=== PATIENT | female | born 1960 ===

== ENCOUNTER 2018-09-25 19:45 | Inpatient (IN) | payer MEDICAID ==
[2018-09-25 20:19] LABS: BASO # 0.1 K/uL (0.0-0.2); BASO % 0.8 % (0.0-2.0); EOS # 0.3 K/uL (0.0-0.7); EOS % 3.7 % (0.0-4.0); HEMOGLOBIN 11.4 g/dL (11.0-16.0); LYMPH # 1.6 K/uL (1.0-4.3); LYMPH % 23.3 % (20.0-40.0); MEAN CELL VOLUME 90.1 fL (81.0-99.0); MEAN CORPUSCULAR HEMOGLOBIN 30.4 pg (27.0-31.0); MEAN CORPUSCULAR HGB CONC 33.8 g/dL (33.0-37.0); MEAN PLATELET VOLUME 8.3 fL (7.2-11.7); MONO # 0.7 K/uL (0.0-0.8); NEUT # 4.3 K/uL (1.8-7.0); NEUT % 62.2 % (50.0-75.0); RBC 3.76 Mil/uL (3.80-5.20); RED CELL DISTRIBUTION WIDTH 13.2 % (11.5-14.5); WHITE BLOOD COUNT 6.8 K/uL (4.8-10.8)
[2018-09-25 20:27] LABS: PROTHROMBIN TIME 10.7 SECONDS (9.7-12.2)
[2018-09-25 20:33] LABS: ALB/GLOB RATIO 1.3 (1.0-2.1)
--- NOTE | 2018-09-25 20:34 | C.PDOC ---
History Of Present Illness 58 year old female with a PMHx of HTN and diabetes presents to the ER with a complaint of vomiting since yesterday associated with a burning sensation in her stomach and three episodes of diarrhea today. Denies bloody stools or bloody vomit. Patient also complains of right ankle pain. Denies recent injury/trauma, weakness, or numbness. Time Seen by Provider: 09/25/18 20:33 Chief Complaint (Nursing): GI Problem History Per: Patient History/Exam Limitations: no limitations Onset/Duration Of Symptoms: Days Current Symptoms Are (Timing): Still Present Quality Of Discomfort: Burning Associated Symptoms: Vomiting, Diarrhea. denies: Fever, Chills Exacerbating Factors: None Alleviating Factors: None Recent travel outside of the [place]: No Abnormal Vaginal Bleeding: No Past Medical History Reviewed: Historical Data, Nursing Documentation, Vital Signs Vital Signs: Last Vital Signs Temp 99.2 F 09/25/18 19:48 Pulse 99 H 09/25/18 19:48 Resp 16 09/25/18 19:48 BP 142/82 09/25/18 19:48 Pulse Ox 100 09/25/18 19:48 - Medical History PMH: HTN, Hyperlipidemia Family History: States: Unknown Family Hx - Social History Hx Alcohol Use: No Hx Substance Use: No Review Of Systems Except As Marked, All Systems Reviewed And Found Negative. Constitutional: Negative for: Fever, Chills, Weakness, Malaise Eyes: Negative for: Pain, Vision Change, Eyelid Inflammation ENT: Negative for: Ear Pain, Ear Discharge, Nose Congestion Cardiovascular: Negative for: Chest Pain, Palpitations, Orthopnea, Edema Respiratory: Negative for: Cough, Shortness of Breath, Hemoptysis, SOB with Excertion, Sputum Gastrointestinal: Positive for: Vomiting, Abdominal Pain (Burning sensation), Diarrhea. Negative for: Constipation, Melena Genitourinary: Negative for: Dysuria, Frequency, Hematuria Musculoskeletal: Positive for: Other (Right ankle pain). Negative for: Neck Pain, Shoulder Pain, Back Pain, Hand Pain Skin: Negative for: Rash, Lesions, Jaundice, Bruising Neurological: Negative for: Weakness, Numbness, Altered Mental Status, Headache Psych: Negative for: Anxiety, Depression Physical Exam - Physical Exam Appears: Well, Non-toxic, No Acute Distress Skin: Normal Color, Warm, Dry Head: Atraumatic, Normacephalic Eye(s): bilateral: Normal Inspection, PERRL, EOMI Ear(s): Bilateral: Normal Nose: Normal Oral Mucosa: Moist Tongue: Normal Appearing Lips: Normal Appearing Throat: Normal, No Erythema, No Exudate, No Drooling Neck: Normal, Normal ROM, Supple, Other (no meningeal signs) Chest: Symmetrical, No Tenderness Cardiovascular: Rhythm Regular Respiratory: Normal Breath Sounds, No Rales, No Rhonchi, No Wheezing Gastrointestinal/Abdominal: Normal Exam, Soft, No Tenderness Back: Normal Inspection, No CVA Tenderness, No Vertebral Tenderness Extremity: Normal ROM, No Tenderness, No Pedal Edema, No Calf Tenderness, Other (negative thompsons test) Extremity: Bilateral: Atraumatic, Hips Non-Tender, No Pedal Edema, Other (R mallelor tenderness, non erythematous, No crepitus. Walking well. No forefoot or plantar pain. n/v intact. ) Pulses: Left Dorsalis Pedis: Normal, Right Dorsalis Pedis: Normal Neurological/Psych: Oriented x3, Normal Speech, Normal Cognition ED Course And Treatment - Laboratory Results Result Diagrams: 09/25/18 12:31 09/25/18 23:12 O2 Sat by Pulse Oximetry: 100 (Room air) Pulse Ox Interpretation: Normal Medical Decision Making Medical Decision Makin yr old F w/ hx dm2 p/w nausea, vomiting, burning epigastric pain. No dysuria, urgency or frequency. No chest pain or sob. R malleloar tenderness. No recent trauma. No edema. No erythematous or warm joint. No overlying skin abnl. Negative mcgrath foot. Ambulating w/ out issue or pain. No fever, chills or night sweats. CT abd/pel, blood work, urinalysis, CXR, and EKG ordered. EK, NSR, No stemi 1047 Cr elevated. No previous hx per pt of kidney issues: no previous abnl labs per pt. Likely CINTHIA. no signs of overload on exam bnp unremarkable lipase mildly elevated UA w/ out uti will seek gentle hydration appeciate consult w/ Hospitalist: Repeat CMP. Enteritis on ct: will rx. No recent abx. XR unremarkable 1137 CMP: Cr 6.8 appreciate consult w/ Dr. Davis to be admitted to Dr. Davis service pt agreeable Disposition - Disposition Disposition Time: 23:39 Condition: GOOD Forms: [facility] (Armenian) - Clinical Impression Clinical Impression: CINTHIA (acute kidney injury), Enteritis - Scribe Statement The provider has reviewed the documentation as recorded by the Scribe Weston Faulkner All medical record entries made by the Scribe were at my direction and personally dictated by me. I have reviewed the chart and agree that the record accurately reflects my personal performance of the history, physical exam, medical decision making, and the department course for this patient. I have also personally directed, reviewed, and agree with the discharge instructions and disposition.
[2018-09-25 20:47] LABS: SQUAMOUS EPITHIAL 1 /hpf (0-5); URINE AMORPHOUS SEDIMENT RARE /ul (<OCC); URINE BACTERIA OCC (<OCC); URINE BILIRUBIN NEGATIVE (NEGATIVE); URINE BLOOD 1+ (NEGATIVE); URINE CLARITY Hazy (Clear); URINE COLOR Yellow (YELLOW); URINE GLUCOSE (UA) NORMAL (Normal); URINE LEUKOCYTE ESTERASE NEG Leu/uL (Negative); URINE PROTEIN 1+ mg/dL (NEGATIVE); URINE UROBILINOGEN NORMAL mg/dL (0.2-1.0)
[2018-09-25] MEDS ORDERED: Ciprofloxacin 400mg/200ml D5W 400 MG/200 ML BAG IVPB STA (22:42)
[2018-09-25] MEDS ORDERED: metroNIDAZOLE IV 500 mg/100 ml 500 MG/100 ML BAG IVPB STA (22:42)
[2018-09-25] MEDS ORDERED: Sodium Chloride 0.9% 1,000 ML IV SCH (22:45)
[2018-09-25] MEDS ORDERED: Ciprofloxacin 400mg/200ml D5W 400 MG/200 ML BAG IVPB ONE (22:53)
[2018-09-25] MEDS ORDERED: metroNIDAZOLE IV 500 mg/100 ml 500 MG/100 ML BAG ONE (22:54)
[2018-09-25] MEDS ORDERED: Sodium Chloride 0.9% 1,000 ML ONE (22:54)
[2018-09-25 23:28] LABS: ALB/GLOB RATIO 1.2 (1.0-2.1); ALBUMIN 3.6 g/dL (3.5-5.0); CALCIUM 8.7 mg/dl (8.6-10.4)
[2018-09-25 23:59] VITALS: RESP 20
[2018-09-26] MEDS ORDERED: Sodium Chloride 0.9% 1,000 ML IV SCH ×2 (01:45→10:00)
--- NOTE | 2018-09-26 01:45 | CP.PCM.HP ---
<Zulma Severino P - Last Filed: 09/26/18 10:16> History of Present Illness - History of Present Illness History of Present Illness: H&P for Hospitalist service HPI: 58 year old female with PMHx of DM2, HLD, and HTN presents to ED complaining of nausea, vomiting, and diarrhea that began one day prior to arrival. There have been 2 episodes of vomiting (non-bloody) each day and there has been 3 episodes of non-bloody diarrhea since yesterday. Patient also reports left sided abdominal burning. Patient also complains of R foot pain that that began one day ago and worsens with weight bearing. Treatment with ibuprofen provided no improvement. Patient noted to have BUN/Cr of 50/6.8 in ED. Patient has no previous history. States she just got blood work done at her PMD's office 4 days ago, has not received results yet. Notes decreased urination in the past few months. Denies dysuria, hematuria, swelling, chest pain, shortness of breath. PMHx: DM, HLD, HTN PSHx: colonoscopy 2014- findings of non-specific colitis Meds: Glimiperide 2mg daily, simvastatin 20mg daily, metformin 1000mg BID, enalapril 5mg daily. Alogliptin/Metformin 12.5/1000mg (patient was prescribed this 4 days ago, she took it for 2 days and discontinued it due to side effects) Allergies: NKDA FamHx: mother- stomach cancer, brother-DM SocHx: Denies tobacco, alcohol and drugs. lives with family. Works in a school. Proxy: Sarah Paty [phone] PMD: Cristian Review of Systems: -Gen: No fever, No chills, No headache, No lethargy, No weakness. -HEENT: No dizziness, No change in vision, No change in hearing, No sore throat, No dysphagia, No nasal congestion, No mucous. -Cardio: No chest pain, No palpitations, No lower extremity edema, No orthopnea. -Resp: No cough, No dyspnea, No hemoptysis, No wheezing, No pain on inspiration. -GI: + abdominal pain, + nausea/vomiting, No diarrhea/constipation, No hematochezia, No hematemesis. -: No dysuria, No urinary freq, No incontinence, No hematuria, No change in urinary stream. +decreased urination -MSK: No back pain, No muscle weakness, No radiating pain. + R foot pain -Skin: No itching, No rash, No lesions. -Neuro: No confusion, No numbness, No tingling, No focal weakness, No radicular pain, No syncope. -Psych: No anxiety, No depression, No H/I, No S/I, No hallucinations. Present on Admission - Present on Admission Any Indicators Present on Admission: No Past Patient History - Past Social History Smoking Status: Never Smoked - CARDIAC Hx Hypertension: Yes - ENDOCRINE/METABOLIC Hx Endocrine Disorders: Yes Hx Diabetes Mellitus Type 2: Yes - PSYCHIATRIC Hx Substance Use: No - SURGICAL HISTORY Hx Surgeries: Yes Hx Section: Yes (x3) Meds Allergies/Adverse Reactions: Allergies Allergy/AdvReac Type Severity Reaction Status Date / Time No Known Allergies Allergy Verified 08/12/14 15:18 Physical Exam - Constitutional Appears: Other (in distress with nausea and wrenching) - Head Exam Head Exam: ATRAUMATIC, NORMOCEPHALIC - Eye Exam Eye Exam: EOMI, Normal appearance, PERRL - ENT Exam ENT Exam: Mucous Membranes Dry - Neck Exam Neck exam: Positive for: Full Rom, Normal Inspection - Respiratory Exam Respiratory Exam: Clear to Auscultation Bilateral. absent: Decreased Breath Sounds, Rales, Rhonchi, Wheezes - Cardiovascular Exam Cardiovascular Exam: RRR, +S1, +S2 - GI/Abdominal Exam GI & Abdominal Exam: Normal Bowel Sounds, Soft. absent: Guarding, Rebound, Tenderness - Extremities Exam Extremities exam: Positive for: full ROM, normal capillary refill, normal inspection, pedal pulses present. Negative for: calf tenderness, pedal edema, tenderness - Back Exam Back exam: absent: CVA tenderness (L), CVA tenderness (R) - Neurological Exam Neurological exam: Alert, CN II-XII Intact, Oriented x3 - Psychiatric Exam Psychiatric exam: Normal Affect, Normal Mood - Skin Skin Exam: Dry, Intact, Normal Color, Warm Results - Vital Signs Recent Vital Signs: Last Vital Signs Temp 99.3 F 09/25/18 23:49 Pulse 80 09/25/18 23:49 Resp 20 09/25/18 23:49 BP 143/81 09/25/18 23:49 Pulse Ox 97 09/25/18 23:49 - Labs Result Diagrams: 09/25/18 12:31 09/25/18 23:12 Labs: Laboratory Results - last 24 hr 09/25/18 09/25/18 09/25/18 12:31 12:31 12:31 WBC 6.8 RBC 3.76 L Hgb 11.4 Hct 33.9 L MCV 90.1 MCH 30.4 MCHC 33.8 RDW 13.2 Plt Count 222 MPV 8.3 Neut % (Auto) 62.2 Lymph % (Auto) 23.3 [place] % (Auto) 10.0 Eos % (Auto) 3.7 Baso % (Auto) 0.8 Neut # (Auto) 4.3 Lymph # (Auto) 1.6 [place] # (Auto) 0.7 Eos # (Auto) 0.3 Baso # (Auto) 0.1 PT 10.7 INR 1.0 APTT 32 Sodium 138 Potassium 5.2 Chloride 101 Carbon Dioxide 21 L Anion Gap 21 H BUN 49 H Creatinine 7.1 H Est GFR ( Amer) 7 Est GFR (Non-Af Amer) 6 Random Glucose 95 Calcium 9.0 Phosphorus 4.8 H Magnesium 1.7 Total Bilirubin 0.5 AST 23 ALT 22 Alkaline Phosphatase 54 NT-Pro-B Natriuret Pep Total Protein 7.2 Albumin 4.0 Globulin 3.2 Albumin/Globulin Ratio 1.3 Lipase Urine Color Urine Clarity Urine pH Ur Specific [place] Urine Protein Urine Glucose (UA) Urine Ketones Urine Blood Urine Nitrate Urine Bilirubin Urine Urobilinogen Ur Leukocyte Esterase Urine WBC (Auto) Urine RBC (Auto) Ur Squamous Epith Cells Amorphous Sediment Urine Bacteria 09/25/18 09/25/18 09/25/18 20:23 20:57 21:16 WBC RBC Hgb Hct MCV MCH MCHC RDW Plt Count MPV Neut % (Auto) Lymph % (Auto) [place] % (Auto) Eos % (Auto) Baso % (Auto) Neut # (Auto) Lymph # (Auto) [place] # (Auto) Eos # (Auto) Baso # (Auto) PT INR APTT Sodium Potassium Chloride Carbon Dioxide Anion Gap BUN Creatinine Est GFR ( Amer) Est GFR (Non-Af Amer) Random Glucose Calcium Phosphorus Magnesium Total Bilirubin AST ALT Alkaline Phosphatase NT-Pro-B Natriuret Pep 612 Total Protein Albumin Globulin Albumin/Globulin Ratio Lipase 517 H Urine Color Yellow Urine Clarity Hazy Urine pH 5.0 Ur Specific [place] 1.011 Urine Protein 1+ H Urine Glucose (UA) Normal Urine Ketones Negative Urine Blood 1+ H Urine Nitrate Negative Urine Bilirubin Negative Urine Urobilinogen Normal Ur Leukocyte Esterase Neg Urine WBC (Auto) 2 Urine RBC (Auto) 1 Ur Squamous Epith Cells 1 Amorphous Sediment Rare H Urine Bacteria Occ H 09/25/18 23:12 WBC RBC Hgb Hct MCV MCH MCHC RDW Plt Count MPV Neut % (Auto) Lymph % (Auto) [place] % (Auto) Eos % (Auto) Baso % (Auto) Neut # (Auto) Lymph # (Auto) [place] # (Auto) Eos # (Auto) Baso # (Auto) PT INR APTT Sodium 137 Potassium 5.3 H Chloride 104 Carbon Dioxide 19 L Anion Gap 20 BUN 50 H Creatinine 6.8 H Est GFR ( Amer) 7 Est GFR (Non-Af Amer) 6 Random Glucose 80 Calcium 8.7 Phosphorus Magnesium Total Bilirubin 0.5 AST 26 ALT 26 Alkaline Phosphatase 46 NT-Pro-B Natriuret Pep Total Protein 6.7 Albumin 3.6 Globulin 3.0 Albumin/Globulin Ratio 1.2 Lipase Urine Color Urine Clarity Urine pH Ur Specific [place] Urine Protein Urine Glucose (UA) Urine Ketones Urine Blood Urine Nitrate Urine Bilirubin Urine Urobilinogen Ur Leukocyte Esterase Urine WBC (Auto) Urine RBC (Auto) Ur Squamous Epith Cells Amorphous Sediment Urine Bacteria Assessment & Plan - Assessment and Plan (Free Text) Plan: 58 year old female with PMHx of DM2, HLD and HTN admitted for CINTHIA. Acute kidney injury -BUN/Cr: 50/6.8 - NS at 100mls/hr - Nephrology consulted, help appreciated f/u urine studies, CPK, intact PTH -Reportedly patient had blood work done 4 days ago with PMD, follow up results Diabetes Mellitus 2 - home meds Hold metformin and glimerpide 2mg PO due to CINTHIA Hyperlipidemia -Crestor 5mg PO HS Prophylaxis -CLD -Heparin 5000 u SC Q12 -SCDs -GI ppx not indicated Case discussed with Dr. Davis. <Rudi Davis - Last Filed: 09/26/18 18:50> Results - Vital Signs Recent Vital Signs: Last Vital Signs Temp 99.5 F 09/26/18 16:07 Pulse 85 11/14/18 16:07 Resp 20 09/26/18 16:07 BP 146/82 09/26/18 16:07 Pulse Ox 99 09/26/18 16:07 - Labs Result Diagrams: 09/26/18 11:40 09/26/18 15:18 Labs: Laboratory Results - last 24 hr 09/25/18 09/25/18 09/25/18 12:31 12:31 12:31 WBC 6.8 RBC 3.76 L Hgb 11.4 Hct 33.9 L MCV 90.1 MCH 30.4 MCHC 33.8 RDW 13.2 Plt Count 222 MPV 8.3 Neut % (Auto) 62.2 Lymph % (Auto) 23.3 [place] % (Auto) 10.0 Eos % (Auto) 3.7 Baso % (Auto) 0.8 Neut # (Auto) 4.3 Lymph # (Auto) 1.6 [place] # (Auto) 0.7 Eos # (Auto) 0.3 Baso # (Auto) 0.1 PT 10.7 INR 1.0 APTT 32 Sodium 138 Potassium 5.2 Chloride 101 Carbon Dioxide 21 L Anion Gap 21 H BUN 49 H Creatinine 7.1 H Est GFR ( Amer) 7 Est GFR (Non-Af Amer) 6 POC Glucose (mg/dL) Random Glucose 95 Calcium 9.0 Phosphorus 4.8 H Magnesium 1.7 Iron TIBC % Saturation Ferritin Total Bilirubin 0.5 AST 23 ALT 22 Alkaline Phosphatase 54 NT-Pro-B Natriuret Pep Total Protein 7.2 Albumin 4.0 Globulin 3.2 Albumin/Globulin Ratio 1.3 Lipase Vitamin B12 Folate Urine Color Urine Clarity Urine pH Ur Specific [place] Urine Protein Urine Glucose (UA) Urine Ketones Urine Blood Urine Nitrate Urine Bilirubin Urine Urobilinogen Ur Leukocyte Esterase Urine WBC (Auto) Urine RBC (Auto) Ur Squamous Epith Cells Amorphous Sediment Urine Bacteria Ur Random Creatinine U Random Total Protein Ur Random Sodium Ur Random Potassium Complement C3 Complement C4 Hep Bs Antigen Hep Bs Antibody Hep B Core IgM Ab Hepatitis C Antibody HIV 1&2 Antibody Screen 09/25/18 09/25/18 09/25/18 20:23 20:57 21:16 WBC RBC Hgb Hct MCV MCH MCHC RDW Plt Count MPV Neut % (Auto) Lymph % (Auto) [place] % (Auto) Eos % (Auto) Baso % (Auto) Neut # (Auto) Lymph # (Auto) [place] # (Auto) Eos # (Auto) Baso # (Auto) PT INR APTT Sodium Potassium Chloride Carbon Dioxide Anion Gap BUN Creatinine Est GFR ( Amer) Est GFR (Non-Af Amer) POC Glucose (mg/dL) Random Glucose Calcium Phosphorus Magnesium Iron TIBC % Saturation Ferritin Total Bilirubin AST ALT Alkaline Phosphatase NT-Pro-B Natriuret Pep 612 Total Protein Albumin Globulin Albumin/Globulin Ratio Lipase 517 H Vitamin B12 Folate Urine Color Yellow Urine Clarity Hazy Urine pH 5.0 Ur Specific [place] 1.011 Urine Protein 1+ H Urine Glucose (UA) Normal Urine Ketones Negative Urine Blood 1+ H Urine Nitrate Negative Urine Bilirubin Negative Urine Urobilinogen Normal Ur Leukocyte Esterase Neg Urine WBC (Auto) 2 Urine RBC (Auto) 1 Ur Squamous Epith Cells 1 Amorphous Sediment Rare H Urine Bacteria Occ H Ur Random Creatinine U Random Total Protein Ur Random Sodium Ur Random Potassium Complement C3 Complement C4 Hep Bs Antigen Hep Bs Antibody Hep B Core IgM Ab Hepatitis C Antibody HIV 1&2 Antibody Screen 09/25/18 09/26/18 09/26/18 23:12 07:49 07:49 WBC RBC Hgb Hct MCV MCH MCHC RDW Plt Count MPV Neut % (Auto) Lymph % (Auto) [place] % (Auto) Eos % (Auto) Baso % (Auto) Neut # (Auto) Lymph # (Auto) [place] # (Auto) Eos # (Auto) Baso # (Auto) PT INR APTT Sodium 137 Potassium 5.3 H Chloride 104 Carbon Dioxide 19 L Anion Gap 20 BUN 50 H Creatinine 6.8 H Est GFR ( Amer) 7 Est GFR (Non-Af Amer) 6 POC Glucose (mg/dL) Random Glucose 80 Calcium 8.7 Phosphorus Magnesium Iron TIBC % Saturation Ferritin Total Bilirubin 0.5 AST 26 ALT 26 Alkaline Phosphatase 46 NT-Pro-B Natriuret Pep Total Protein 6.7 Albumin 3.6 Globulin 3.0 Albumin/Globulin Ratio 1.2 Lipase Vitamin B12 Folate Urine Color Urine Clarity Urine pH Ur Specific [place] Urine Protein Urine Glucose (UA) Urine Ketones Urine Blood Urine Nitrate Urine Bilirubin Urine Urobilinogen Ur Leukocyte Esterase Urine WBC (Auto) Urine RBC (Auto) Ur Squamous Epith Cells Amorphous Sediment Urine Bacteria Ur Random Creatinine 40.8 U Random Total Protein Ur Random Sodium 117 Ur Random Potassium 19.0 Complement C3 Complement C4 Hep Bs Antigen Hep Bs Antibody Hep B Core IgM Ab Hepatitis C Antibody HIV 1&2 Antibody Screen 09/26/18 09/26/18 09/26/18 08:44 08:45 11:24 WBC RBC Hgb Hct MCV MCH MCHC RDW Plt Count MPV Neut % (Auto) Lymph % (Auto) [place] % (Auto) Eos % (Auto) Baso % (Auto) Neut # (Auto) Lymph # (Auto) [place] # (Auto) Eos # (Auto) Baso # (Auto) PT INR APTT Sodium Potassium Chloride Carbon Dioxide Anion Gap BUN Creatinine Est GFR ( Amer) Est GFR (Non-Af Amer) POC Glucose (mg/dL) 148 H Random Glucose Calcium Phosphorus Magnesium Iron TIBC % Saturation Ferritin Total Bilirubin AST ALT Alkaline Phosphatase NT-Pro-B Natriuret Pep Total Protein Albumin Globulin Albumin/Globulin Ratio Lipase Vitamin B12 Folate Urine Color Urine Clarity Urine pH Ur Specific [place] Urine Protein Urine Glucose (UA) Urine Ketones Urine Blood Urine Nitrate Urine Bilirubin Urine Urobilinogen Ur Leukocyte Esterase Urine WBC (Auto) Urine RBC (Auto) Ur Squamous Epith Cells Amorphous Sediment Urine Bacteria Ur Random Creatinine U Random Total Protein 56.0 H Ur Random Sodium 117 Ur Random Potassium 19.0 Complement C3 Complement C4 Hep Bs Antigen Hep Bs Antibody Hep B Core IgM Ab Hepatitis C Antibody HIV 1&2 Antibody Screen 09/26/18 09/26/18 09/26/18 11:40 11:40 11:40 WBC RBC Hgb Hct MCV MCH MCHC RDW Plt Count MPV Neut % (Auto) Lymph % (Auto) [place] % (Auto) Eos % (Auto) Baso % (Auto) Neut # (Auto) Lymph # (Auto) [place] # (Auto) Eos # (Auto) Baso # (Auto) PT INR APTT Sodium 135 Potassium 6.0 H Chloride 103 Carbon Dioxide 18 L Anion Gap 20 BUN 54 H Creatinine 7.2 H Est GFR ( Amer) 7 Est GFR (Non-Af Amer) 6 POC Glucose (mg/dL) Random Glucose 144 H Calcium 8.8 Phosphorus Magnesium Iron TIBC % Saturation Ferritin 45.1 Total Bilirubin AST ALT Alkaline Phosphatase NT-Pro-B Natriuret Pep Total Protein Albumin Globulin Albumin/Globulin Ratio Lipase Vitamin B12 383 Folate > 20.0 Urine Color Urine Clarity Urine pH Ur Specific [place] Urine Protein Urine Glucose (UA) Urine Ketones Urine Blood Urine Nitrate Urine Bilirubin Urine Urobilinogen Ur Leukocyte Esterase Urine WBC (Auto) Urine RBC (Auto) Ur Squamous Epith Cells Amorphous Sediment Urine Bacteria Ur Random Creatinine U Random Total Protein Ur Random Sodium Ur Random Potassium Complement C3 129.0 Complement C4 41.9 Hep Bs Antigen Negative Hep Bs Antibody Hep B Core IgM Ab Negative Hepatitis C Antibody Negative HIV 1&2 Antibody Screen Negative 09/26/18 09/26/18 09/26/18 11:40 11:40 11:42 WBC 5.1 RBC 3.62 L Hgb 11.3 Hct 32.8 L MCV 90.6 MCH 31.2 H MCHC 34.5 RDW 13.3 Plt Count 196 MPV 9.1 Neut % (Auto) 62.6 Lymph % (Auto) 24.9 [place] % (Auto) 10.3 H Eos % (Auto) 1.7 Baso % (Auto) 0.5 Neut # (Auto) 3.2 Lymph # (Auto) 1.3 [place] # (Auto) 0.5 Eos # (Auto) 0.1 Baso # (Auto) 0.0 PT INR APTT Sodium Potassium Chloride Carbon Dioxide Anion Gap BUN Creatinine Est GFR ( Amer) Est GFR (Non-Af Amer) POC Glucose (mg/dL) 134 H Random Glucose Calcium Phosphorus Magnesium Iron 51 TIBC 307 % Saturation 17 L Ferritin Total Bilirubin AST ALT Alkaline Phosphatase NT-Pro-B Natriuret Pep Total Protein Albumin Globulin Albumin/Globulin Ratio Lipase Vitamin B12 Folate Urine Color Urine Clarity Urine pH Ur Specific [place] Urine Protein Urine Glucose (UA) Urine Ketones Urine Blood Urine Nitrate Urine Bilirubin Urine Urobilinogen Ur Leukocyte Esterase Urine WBC (Auto) Urine RBC (Auto) Ur Squamous Epith Cells Amorphous Sediment Urine Bacteria Ur Random Creatinine U Random Total Protein Ur Random Sodium Ur Random Potassium Complement C3 Complement C4 Hep Bs Antigen Hep Bs Antibody Hep B Core IgM Ab Hepatitis C Antibody HIV 1&2 Antibody Screen 09/26/18 09/26/18 09/26/18 11:56 15:18 16:33 WBC RBC Hgb Hct MCV MCH MCHC RDW Plt Count MPV Neut % (Auto) Lymph % (Auto) [place] % (Auto) Eos % (Auto) Baso % (Auto) Neut # (Auto) Lymph # (Auto) [place] # (Auto) Eos # (Auto) Baso # (Auto) PT INR APTT Sodium 137 Potassium 5.9 H Chloride 104 Carbon Dioxide 20 L Anion Gap 18 BUN 50 H Creatinine 7.4 H* Est GFR ( Amer) 7 Est GFR (Non-Af Amer) 6 POC Glucose (mg/dL) 137 H Random Glucose 98 Calcium 8.7 Phosphorus Magnesium Iron TIBC % Saturation Ferritin Total Bilirubin AST ALT Alkaline Phosphatase NT-Pro-B Natriuret Pep Total Protein Albumin Globulin Albumin/Globulin Ratio Lipase Vitamin B12 Folate Urine Color Urine Clarity Urine pH Ur Specific [place] Urine Protein Urine Glucose (UA) Urine Ketones Urine Blood Urine Nitrate Urine Bilirubin Urine Urobilinogen Ur Leukocyte Esterase Urine WBC (Auto) Urine RBC (Auto) Ur Squamous Epith Cells Amorphous Sediment Urine Bacteria Ur Random Creatinine U Random Total Protein Ur Random Sodium Ur Random Potassium Complement C3 Complement C4 Hep Bs Antigen Hep Bs Antibody Positive Hep B Core IgM Ab Hepatitis C Antibody HIV 1&2 Antibody Screen Assessment & Plan - Date & Time Date: 09/26/18 (I have seen and examined the patient. I agree with the findings and plan of care as documented by Dr. Severino. Patient with acute kidney injury. IVF. Monitor renal function and I&O's. Consult to nephro. History of diabetes. NISS. Accuchecks. Monitor for acute changes.) Time: 18:49 Attending/Attestation - Attestation I have personally seen and examined this patient.: Yes I have fully participated in the care of the patient.: Yes I have reviewed all pertinent clinical information: Yes
[2018-09-26] MEDS ORDERED: Dextrose 50% SYRINGE Inj (50 ml) IV PRN (01:46)
[2018-09-26] MEDS ORDERED: Glucagon Recombinant 1 mg Inj IM PRN (01:46)
--- NOTE | 2018-09-26 07:45 | RAD ---
Date of service: 09/25/2018 PROCEDURE: Right Ankle Radiographs. HISTORY: r malleolar pain COMPARISON: None available. FINDINGS: BONES: No acute fracture or destructive bony lesion identified. JOINTS: Normal. No osteoarthritis. Ankle mortise maintained. Talar dome intact SOFT TISSUES: Nonspecific calcification is appreciated in the distal pretibial soft tissue above the level the ankle. OTHER FINDINGS: None. IMPRESSION: No acute fracture or dislocation appreciated right ankle.
[2018-09-26] MEDS: (Novolin R) Insulin Human Regular 100 units/ml vial SC SCH ×4 (08:08→22:14)
[2018-09-26 09:18] LABS: CREATININE, RANDOM URINE 40.8 mg/dL
--- NOTE | 2018-09-26 11:38 | RAD ---
HISTORY: burning epigastric pain COMPARISON: None available. TECHNIQUE: Chest PA and lateral FINDINGS: LUNGS: Patchy atelectasis or infiltrate in the medial right lower lobe. Please note that chest x-ray has limited sensitivity for the detection of pulmonary masses. PLEURA: No significant pleural effusion identified. No definite pneumothorax . CARDIOVASCULAR: Heart size appears within normal limits. Faint atherosclerotic calcification present. OSSEOUS STRUCTURES: Degenerative changes. VISUALIZED UPPER ABDOMEN: Unremarkable. OTHER FINDINGS: None. IMPRESSION: Mild patchy atelectasis or infiltrate medial right lower lobe. Study marked for PA review.
[2018-09-26 11:56] LABS: BASO % 0.5 % (0.0-2.0); EOS # 0.1 K/uL (0.0-0.7); EOS % 1.7 % (0.0-4.0); HEMOGLOBIN 11.3 g/dL (11.0-16.0); LYMPH # 1.3 K/uL (1.0-4.3); LYMPH % 24.9 % (20.0-40.0); MEAN CELL VOLUME 90.6 fL (81.0-99.0); MEAN CORPUSCULAR HEMOGLOBIN 31.2 pg (27.0-31.0); MEAN CORPUSCULAR HGB CONC 34.5 g/dL (33.0-37.0); MEAN PLATELET VOLUME 9.1 fL (7.2-11.7); MONO # 0.5 K/uL (0.0-0.8); MONO % 10.3 % (0.0-10.0); NEUT # 3.2 K/uL (1.8-7.0); NEUT % 62.6 % (50.0-75.0); NRBC % 0.1 % (0.0-2.0); RBC 3.62 Mil/uL (3.80-5.20); RED CELL DISTRIBUTION WIDTH 13.3 % (11.5-14.5); WHITE BLOOD COUNT 5.1 K/uL (4.8-10.8)
--- NOTE | 2018-09-26 12:23 | CARD ---
APPROVED REPORT Date of service: 09/25/2018 EKG Measurement Heart [id number] <Conclusion> Normal sinus rhythm Nonspecific T wave abnormality Abnormal ECG
[2018-09-26 12:41] LABS: % IRON SATURATION 17 (20-55); IRON 51 ug/dL (37-170); TOTAL IRON BINDING CAPACITY 307 ug/dL (250-450)
[2018-09-26 12:56] LABS: FERRITIN 45.1 ng/mL; HEPATITIS B CORE AB NEGATIVE (NEGATIVE)
[2018-09-26 13:01] LABS: HEPATITIS C ANTIBODY NEGATIVE (NEGATIVE)
[2018-09-26 13:03] LABS: COMPLEMENT C4 41.9 mg/dL (14.0-44.0)
[2018-09-26 13:48] LABS: BLOOD UREA NITROGEN 54 mg/dL (7-17); CALCIUM 8.8 mg/dl (8.6-10.4); GFR NON-AFRICAN AMERICAN 6
[2018-09-26 13:49] LABS: HEPATITIS B SURFACE AG Negative (NEGATIVE)
--- NOTE | 2018-09-26 13:58 | CP.PCM.PN ---
<Sanchez Llanes - Last Filed: 09/26/18 16:54> Subjective - Date & Time of Evaluation Date of Evaluation: 09/26/18 Time of Evaluation: 13:56 - Subjective Subjective: PGY-1 Medicine progress note for Dr. Haydee Sanchez Patient seen and examined at bedside. Patient is complaining of nausea and right ankle pain. She denies any nausea or diarrhea today. She further denies fevers, chills, shortness of breath, chest pain, abdominal pain, or urinary symptoms. Objective - Vital Signs/Intake and Output Vital Signs (last 24 hours): Temp Pulse Resp BP Pulse Ox 97.7 F 87 20 138/80 96 09/26/18 09:36 09/26/18 09:36 09/26/18 09:36 09/26/18 09:36 09/26/18 09:36 Intake and Output: 09/26/18 09/26/18 06:59 18:59 Intake Total 700 Balance 700 - Medications Medications: Current Medications Dextrose (Dextrose 50% Inj) 0 ml IV STAT PRN; Protocol PRN Reason: Hypoglycemia Protocol Dextrose (Glutose 15) 0 gm PO ONCE PRN; Protocol PRN Reason: Hypoglycemia Protocol Glucagon (Glucagen Diagnostic Kit) 0 mg IM STAT PRN; Protocol PRN Reason: Hypoglycemia Protocol Heparin Sodium (Porcine) (Heparin) 5,000 units SC Q12 [facility] Last Admin: 09/26/18 09:45 Dose: 5,000 units Dextrose (Dextrose 5% In Water 1000 Ml) 1,000 mls @ 0 mls/hr IV .Q0M PRN; Protocol PRN Reason: Hypoglycemia Protocol Sodium Chloride (Sodium Chloride 0.9%) 1,000 mls @ 100 mls/hr IV .Q10H [facility] Last Admin: 09/26/18 12:22 Dose: Not Given Influenza Virus Vaccine (Fluzone Quad 2846-5555) 60 mcg IM .ONCE ONE Stop: 09/28/18 10:01 Insulin Human Regular (Novolin R) 0 unit SC ACHS [facility]; Protocol Last Admin: 09/26/18 11:50 Dose: Not Given Ondansetron HCl (Zofran Inj) 4 mg IVP Q8H PRN PRN Reason: Nausea/Vomiting Last Admin: 09/26/18 00:19 Dose: 4 mg Pneumococcal Polyvalent Vaccine (Pneumovax 23 Vaccine) 0.5 ml IM .ONCE ONE Stop: 09/28/18 10:01 - Labs Labs: 09/26/18 11:40 09/26/18 11:40 PT 10.7 SECONDS (9.7-12.2) 09/25/18 12:31 INR 1.0 09/25/18 12:31 APTT 32 SECONDS (21-34) 09/25/18 12:31 - Additional Findings Additional findings: - Constitutional Appears: Not in acute distress - Head Exam Head Exam: ATRAUMATIC, NORMOCEPHALIC - Eye Exam Eye Exam: EOMI, Normal appearance, PERRL - ENT Exam ENT Exam: Mucous Membranes Dry - Neck Exam Neck exam: Positive for: Full Rom, Normal Inspection - Respiratory Exam Respiratory Exam: Clear to Auscultation Bilateral. absent: Decreased Breath Sounds, Rales, Rhonchi, Wheezes - Cardiovascular Exam Cardiovascular Exam: RRR, +S1, +S2 - GI/Abdominal Exam GI & Abdominal Exam: Normal Bowel Sounds, Soft. absent: Guarding, Rebound, Tenderness - Extremities Exam Extremities exam: Mild swelling on right lateral malleolus and tender to palpation. Positive for: full ROM, normal capillary refill, normal inspection, pedal pulses present. Negative for: calf tenderness, pedal edema - Back Exam Back exam: absent: CVA tenderness (L), CVA tenderness (R) - Neurological Exam Neurological exam: Alert, CN II-XII Intact, Oriented x3 - Psychiatric Exam Psychiatric exam: Normal Affect, Normal Mood - Skin Skin Exam: Dry, Intact, Normal Color, Warm Assessment and Plan - Assessment and Plan (Free Text) Assessment: 58 year old female with PMHx of DM2, HLD, and HTN presented to the ED with nausea, vomiting, and diarrhea for 1 day. She is admitted for CINTHIA with Cr of 7.0 on admission. Plan: Acute kidney injury: - Likely pre-renal etiology, dehydration 2/2 multiple episodes of nausea and vomiting - BUN/Cr: 50/7.2 - BUN/Cr PMD's office (09/21): 13/0.9 - Renal U/S (09/26): Mildly increased cortical echogenicity may indicate intrinsic medical renal disease. Both kidneys are otherwise unremarkable appearing. - Abd/pelvic CT (09/26): Diverticulosis. Wall thickening inflammatory stranding involving the distal left colon may reflect acute diverticulitis. Marked wall thickening of the duodenum. Correlate clinically for enteritis. Moderate hiatal hernia and marked distal esophageal wall thickening. If indicated, recommend further evaluation with endoscopy. - CXR (09/26): Mild patchy atelectasis or infiltrate medial right lower lobe. - EKG: NSR @ 96 - NS @ 110mls/hr - Nephrology consulted, Dr. Doyle - Urine protein: 56 - C3/C4: WNL - Lipase: 507 - Urine studies, CPK, intact PTH: f/u - DILCIA, ANCA, DS-DNA, immunofixation, Ursina/Lambda light chains: f/u - Get recent lab results from PMD Dr. Foster Right ankle pain: - Likely 2/2 sprain - R ankle Xray (09/26): No acute fracture or dislocation appreciated right ankle. Diabetes Mellitus 2: - Home meds hold Metformin and Glimerpide 2mg PO due to CINTHIA - Accuchecks ACHS - ISS - Hypoglycemia protocol Hyperlipidemia: - Crestor 5mg PO HS - Hold Prophylaxis -CLD -Heparin 5000 u SC Q12 -SCDs -GI ppx not indicated Case discussed with Dr. Haydee Llanes, PGY-1 <Kev Sanchez - Last Filed: 09/29/18 07:20> Objective - Vital Signs/Intake and Output Vital Signs (last 24 hours): Temp Pulse Resp BP Pulse Ox 98.3 F 79 20 127/73 97 09/29/18 00:00 09/29/18 00:00 09/29/18 00:00 09/29/18 00:00 09/29/18 00:00 Intake and Output: 09/29/18 09/29/18 06:59 18:59 Intake Total 2415 Balance 2415 - Medications Medications: Current Medications Acetaminophen (Tylenol 325mg Tab) 650 mg PO Q6 PRN PRN Reason: Pain, Mild (1-3) Last Admin: 09/28/18 03:24 Dose: 650 mg Calcium Acetate (Phoslo) 667 mg PO BIDCC [facility] Last Admin: 09/28/18 17:39 Dose: 667 mg Dextrose (Dextrose 50% Inj) 0 ml IV STAT PRN; Protocol PRN Reason: Hypoglycemia Protocol Dextrose (Glutose 15) 0 gm PO ONCE PRN; Protocol PRN Reason: Hypoglycemia Protocol Ferrous Gluconate (Fergon) 324 mg PO TID [facility] Last Admin: 09/28/18 17:39 Dose: 324 mg Glucagon (Glucagen Diagnostic Kit) 0 mg IM STAT PRN; Protocol PRN Reason: Hypoglycemia Protocol Heparin Sodium (Porcine) (Heparin) 5,000 units SC Q12 [facility] Last Admin: 09/28/18 21:50 Dose: 5,000 units Dextrose (Dextrose 5% In Water 1000 Ml) 1,000 mls @ 0 mls/hr IV .Q0M PRN; Pr otocol PRN Reason: Hypoglycemia Protocol Sodium Chloride (Sodium Chloride 0.9%) 1,000 mls @ 110 mls/hr IV .Q9H6M [facility] Last Admin: 09/28/18 23:49 Dose: 110 mls/hr Ciprofloxacin (Cipro 400mg/200ml Dsw) 400 mg in 200 mls @ 133 mls/hr IVPB Q24H [facility]; Protocol Last Admin: 09/28/18 20:17 Dose: 133 mls/hr Metronidazole (Flagyl) 500 mg in 100 mls @ 100 mls/hr IVPB Q8H [facility]; Protocol Last Admin: 09/29/18 01:39 Dose: 100 mls/hr Insulin Human Regular (Novolin R) 0 unit SC ACHS [facility]; Protocol Last Admin: 09/28/18 21:49 Dose: 2 units Ondansetron HCl (Zofran Inj) 4 mg IVP Q8H PRN PRN Reason: Nausea/Vomiting Last Admin: 09/26/18 00:19 Dose: 4 mg Pantoprazole Sodium (Protonix Inj) 40 mg IVP DAILY [facility] Last Admin: 09/28/18 09:24 Dose: 40 mg Rosuvastatin Calcium (Crestor) 5 mg PO HS [facility] Last Admin: 09/28/18 22:18 Dose: Not Given Sodium Bicarbonate (Sodium Bicarbonate Tab) 650 mg PO BID [facility] Last Admin: 09/28/18 17:39 Dose: 650 mg Vitamin B Complex/Vit C/Folic Acid (Nephro-Brayden) 1 tab PO 0800 [facility] Last Admin: 09/28/18 08:16 Dose: 1 tab - Labs Labs: 09/29/18 06:18 09/29/18 06:19 PT 10.7 SECONDS (9.7-12.2) 09/25/18 12:31 INR 1.0 09/25/18 12:31 APTT 32 SECONDS (21-34) 09/25/18 12:31 Attending/Attestation - Attestation I have personally seen and examined this patient.: Yes I have fully participated in the care of the patient.: Yes I have reviewed all pertinent clinical information, including history, physical exam and plan: Yes Notes (Text): 09/29/18 07:19 This is a late entry. Care of this patient was gone over in detail with resident Dr. Betito Sanchez D.O.
--- NOTE | 2018-09-26 14:07 | US ---
Date of service: 09/26/2018 PROCEDURE: Ultrasound of the Kidneys HISTORY: CINTHIA, r/o obstruction COMPARISON: None available. TECHNIQUE: Sonogram of the kidneys. FINDINGS: RIGHT KIDNEY: Measures: 11.4 x 5.8 x 5.0 cm. Normal in size and contour. Increased cortical echogenicity may reflect intrinsic medical renal disease. No stone, solid mass lesion or hydronephrosis visualized. LEFT KIDNEY: Measures: cm. Normal in size and contour. Increased cortical echogenicity may reflect intrinsic medical renal disease. No stone, solid mass lesion or hydronephrosis visualized. OTHER FINDINGS: None. IMPRESSION: Mildly increased cortical echogenicity may indicate intrinsic medical renal disease. Both kidneys are otherwise unremarkable appearing.
--- NOTE | 2018-09-26 14:19 | CT ---
PROCEDURE: CT Abdomen and Pelvis without Oral or IV contrast. HISTORY: abd pain elevated creatinine COMPARISON: None available. TECHNIQUE: Contiguous axial images of the abdomen and pelvis. No oral or IV contrast administered. Coronal and Sagittal reformats generated and reviewed. Radiation dose: Total exam DLP = 481.89 mGy-cm. This CT exam was performed using one or more of the following dose reduction techniques: Automated exposure control, adjustment of the mA and/or kV according to patient size, and/or use of iterative reconstruction technique. FINDINGS: There is limited evaluation of the solid organs without the administration of IV contrast. LOWER THORAX: No visible consolidation, pleural effusion, or pneumothorax. 6 mm right middle lobe calcified granuloma. Moderate hiatal hernia and marked distal esophageal wall thickening. LIVER: Unremarkable. No gross lesion or ductal dilatation. GALLBLADDER AND BILE DUCTS: Unremarkable unenhanced appearance. PANCREAS: Unremarkable unenhanced appearance. SPLEEN: Unremarkable unenhanced appearance. ADRENALS: Left adrenal gland hypertrophy. Unremarkable unenhanced right adrenal gland. KIDNEYS AND URETERS: No hydronephrosis or obstructing renal calculus. Punctate nonobstructing right renal calculus. Nonspecific bilateral perinephric stranding. BLADDER: Under distention of the urinary bladder limits evaluation. REPRODUCTIVE: Uterus is present. APPENDIX: The appendix appears within normal limits of caliber. No secondary signs of acute appendicitis. BOWEL: The stomach is nondistended. Lack of oral contrast limits evaluation for bowel pathology. The bowel loops appear within normal limits of caliber without evidence of intestinal obstruction. Marked wall thickening of the duodenum. Diverticulosis. Wall thickening inflammatory stranding involving the distal left colon may reflect acute diverticulitis. PERITONEUM: No significant free fluid. No definite free air. LYMPH NODES: No bulky lymphadenopathy identified. VASCULATURE: Atherosclerotic calcification of the aorta. No aortic aneurysm. BONES: Degenerative changes of the spine. OTHER FINDINGS: Fat containing umbilical hernia. IMPRESSION: Diverticulosis. Wall thickening inflammatory stranding involving the distal left colon may reflect acute diverticulitis. Marked wall thickening of the duodenum. Correlate clinically for enteritis. Moderate hiatal hernia and marked distal esophageal wall thickening. If indicated, recommend further evaluation with endoscopy. Additional findings as above. Preliminary impression was provided by [facility]. Study marked for PA review.
[2018-09-26 15:57] LABS: CALCIUM 8.7 mg/dl (8.6-10.4)
[2018-09-26] MEDS ORDERED: Sod Polystyrene Sulf 15 gm/60 ml Susp PO ONE (16:31)
[2018-09-26 16:34] LABS: FOLATE > 20.0 ng/mL
--- NOTE | 2018-09-26 16:43 | CP.PCM.CON ---
History of Present Illness - History of Present Illness History of Present Illness: Nephrology Consultation Note: Assessment: Stable Acute Kidney Injury (N17.9) likely due to fluid loss, ATN hyperkalemia, acidosis DM, HTN, Anemia acute gastroenteritis Plan No acute need for renal replacement therapy at this time. but may need soon and will need close follow up Hypertension control with meds as ordered. Maintain hemodynamics stable. Avoid hypotension. Patient not on ACEI/ARB due to recent CINTHIA Monitor Input/Output, daily weights and renal function with basic metabolic panel added sodium bicarb medical management of hyperkalemia in meantime Check urine analysis, spot protein/creatinine, albumin/creatinine ratio, renal sonogram Check GN work up as C3, C4, DILCIA, Anti dsDNA,ANCA (MPO and [place]-3),HIV/Hep B and Hep C serology CPK level,uric acid level Anemia work up with TSAT/Ferritin/Vitamin B12/folate, serum protein electrophoresis with immunofixation, serum free light chain assay ([place]/Lambda) Check for 25-OH vitamin D, iPTH, phosphorus level. Dose meds/antibiotics for reduced GFR. Avoid fleets enema/magnesium based laxatives. Avoid nephrotoxins/NSAIDs/ iodinated contrast (unless needed emergently) Glycemic control Further work up/management as per primary team Thanks for allowing me to participate in care of your patient. Will follow patient with you. Please call if any Qs. had d/w team Dr Naren Doyle Office: [phone] Chief Complaint; dehydration Reason for consult: Acute Kidney Injury HPI: Pt is a 58 F with hx of diabetes Mellitus ( years), hypertension (years) and now known renal history presented with complaints of nausea/vomitting and loose stool x 2 days with decreased oral intake. renal consult for CINTHIA. Denies OTC/herbal meds or NSAIDs No recent iodinated contrast exposure. No obvious episodes of low BP. ROS: Cardiovascular: No chest pain. Pulmonary: No shortness of breath Gastrointestinal: denies abdominal pain c/o nausea. c/o vomiting. now she feels better Genitourinary: No pain while urinating. Denies blood in urine. All other negative except as mentioned in HPI Physical Examination: General Appearance: Comfortable, in no acute respiratory distress, co-operative . Vitals reviewed and noted as below Head; Atraumatic, normocephalic ENT: no ulcers no thrush. Tongue is midline. Oropharynx: no rash or ulcers. EYES: Pupils are equal, round and reactive to light accommodation. Eye muscles and extraocular movement intact. Sclera is anicteric. Neck; supple no lymphadenopathy, no thyromegaly or bruit Lungs: Normal respiratory rate/effort. Breath sounds bilateral equal and clear Heart: Normal rate. s1s2 normal. No rub or gallop. Extremities: no edema. No varicose veins Neurological: Patient is alert, awake and oriented to person, place and time. No focal deficit. Strength bilateral appropriate and equal Skin: Warm and dry. Normal turgor. No rash. Palpitation: Normal elasticity for age Abdomen: Abdomen is soft. Bowel sounds +. There is no abdominal tenderness, no guarding/rigidity no organomegaly Psych: normal insight and normal affect/mood MSK: no joint tenderness or swelling. Digits and nails normal, no deformity : kidney or bladder not palpable Labs/imaging reviewed. Past medical history, past surgical history, family history, social history, allergy reviewed and noted as below Family hx: no hx of CKD. Rest non-contributory Past Patient History - Past Medical History & Family History Past Medical History?: Yes - Past Social History Smoking Status: Never Smoked - CARDIAC Hx Hypertension: Yes - ENDOCRINE/METABOLIC Hx Endocrine Disorders: Yes Hx Diabetes Mellitus Type 2: Yes - MUSCULOSKELETAL/RHEUMATOLOGICAL Hx Falls: No - PSYCHIATRIC Hx Substance Use: No - SURGICAL HISTORY Hx Surgeries: Yes Hx Section: Yes (x3) - ANESTHESIA Hx Anesthesia: Yes Hx Anesthesia Reactions: No Hx Malignant Hyperthermia: No Has any member of the family had a problem w/ anesthesia?: No Meds Allergies/Adverse Reactions: Allergies Allergy/AdvReac Type Severity Reaction Status Date / Time No Known Allergies Allergy Verified 08/12/14 15:18 - Medications Medications: Current Medications Dextrose (Dextrose 50% Inj) 0 ml IV STAT PRN; Protocol PRN Reason: Hypoglycemia Protocol Dextrose (Glutose 15) 0 gm PO ONCE PRN; Protocol PRN Reason: Hypoglycemia Protocol Glucagon (Glucagen Diagnostic Kit) 0 mg IM STAT PRN; Protocol PRN Reason: Hypoglycemia Protocol Heparin Sodium (Porcine) (Heparin) 5,000 units SC Q12 [facility] Last Admin: 09/26/18 09:45 Dose: 5,000 units Dextrose (Dextrose 5% In Water 1000 Ml) 1,000 mls @ 0 mls/hr IV .Q0M PRN; P rotocol PRN Reason: Hypoglycemia Protocol Calcium Gluconate 4.65 meq/ (Sodium Chloride) 110 mls @ 100 mls/hr IV ONCE ONE Stop: 09/26/18 17:35 Sodium Chloride (Sodium Chloride 0.9%) 1,000 mls @ 110 mls/hr IV .Q9H6M [facility] Influenza Virus Vaccine (Fluzone Quad [id number]) 60 mcg IM .ONCE ONE Stop: 09/28/18 10:01 Insulin Human Regular (Novolin R) 0 unit SC ACHS [facility]; Protocol Last Admin: 09/26/18 11:50 Dose: Not Given Ondansetron HCl (Zofran Inj) 4 mg IVP Q8H PRN PRN Reason: Nausea/Vomiting Last Admin: 09/26/18 00:19 Dose: 4 mg Pneumococcal Polyvalent Vaccine (Pneumovax 23 Vaccine) 0.5 ml IM .ONCE ONE Stop: 09/28/18 10:01 Sodium Bicarbonate (Sodium Bicarbonate Tab) 650 mg PO BID [facility] Sodium Polystyrene Sulfonate (Kayexalate Susp) 30 gm PO ONCE ONE Stop: 09/26/18 16:32 Results - Vital Signs Recent Vital Signs: Last Vital Signs Temp 99.5 F 09/26/18 16:07 Pulse 85 09/26/18 16:07 Resp 20 09/26/18 16:07 BP 146/82 09/26/18 16:07 Pulse Ox 99 09/26/18 16:07 - Labs Result Diagrams: 09/26/18 11:40 09/26/18 15:18 Labs: Laboratory Results - last 24 hr 09/25/18 09/25/18 09/25/18 12:31 12:31 12:31 WBC 6.8 RBC 3.76 L Hgb 11.4 Hct 33.9 L MCV 90.1 MCH 30.4 MCHC 33.8 RDW 13.2 Plt Count 222 MPV 8.3 Neut % (Auto) 62.2 Lymph % (Auto) 23.3 [place] % (Auto) 10.0 Eos % (Auto) 3.7 Baso % (Auto) 0.8 Neut # (Auto) 4.3 Lymph # (Auto) 1.6 [place] # (Auto) 0.7 Eos # (Auto) 0.3 Baso # (Auto) 0.1 PT 10.7 INR 1.0 APTT 32 Sodium 138 Potassium 5.2 Chloride 101 Carbon Dioxide 21 L Anion Gap 21 H BUN 49 H Creatinine 7.1 H Est GFR ( Amer) 7 Est GFR (Non-Af Amer) 6 POC Glucose (mg/dL) Random Glucose 95 Calcium 9.0 Phosphorus 4.8 H Magnesium 1.7 Iron TIBC % Saturation Ferritin Total Bilirubin 0.5 AST 23 ALT 22 Alkaline Phosphatase 54 NT-Pro-B Natriuret Pep Total Protein 7.2 Albumin 4.0 Globulin 3.2 Albumin/Globulin Ratio 1.3 Lipase Vitamin B12 Folate Urine Color Urine Clarity Urine pH Ur Specific [place] Urine Protein Urine Glucose (UA) Urine Ketones Urine Blood Urine Nitrate Urine Bilirubin Urine Urobilinogen Ur Leukocyte Esterase Urine WBC (Auto) Urine RBC (Auto) Ur Squamous Epith Cells Amorphous Sediment Urine Bacteria Ur Random Creatinine U Random Total Protein Ur Random Sodium Ur Random Potassium Complement C3 Complement C4 Hep Bs Antigen Hep Bs Antibody Hep B Core IgM Ab Hepatitis C Antibody HIV 1&2 Antibody Screen 09/25/18 09/25/18 09/25/18 20:23 20:57 21:16 WBC RBC Hgb Hct MCV MCH MCHC RDW Plt Count MPV Neut % (Auto) Lymph % (Auto) [place] % (Auto) Eos % (Auto) Baso % (Auto) Neut # (Auto) Lymph # (Auto) [place] # (Auto) Eos # (Auto) Baso # (Auto) PT INR APTT Sodium Potassium Chloride Carbon Dioxide Anion Gap BUN Creatinine Est GFR ( Amer) Est GFR (Non-Af Amer) POC Glucose (mg/dL) Random Glucose Calcium Phosphorus Magnesium Iron TIBC % Saturation Ferritin Total Bilirubin AST ALT Alkaline Phosphatase NT-Pro-B Natriuret Pep 612 Total Protein Albumin Globulin Albumin/Globulin Ratio Lipase 517 H Vitamin B12 Folate Urine Color Yellow Urine Clarity Hazy Urine pH 5.0 Ur Specific [place] 1.011 Urine Protein 1+ H Urine Glucose (UA) Normal Urine Ketones Negative Urine Blood 1+ H Urine Nitrate Negative Urine Bilirubin Negative Urine Urobilinogen Normal Ur Leukocyte Esterase Neg Urine WBC (Auto) 2 Urine RBC (Auto) 1 Ur Squamous Epith Cells 1 Amorphous Sediment Rare H Urine Bacteria Occ H Ur Random Creatinine U Random Total Protein Ur Random Sodium Ur Random Potassium Complement C3 Complement C4 Hep Bs Antigen Hep Bs Antibody Hep B Core IgM Ab Hepatitis C Antibody HIV 1&2 Antibody Screen 09/25/18 09/26/18 09/26/18 23:12 07:49 07:49 WBC RBC Hgb Hct MCV MCH MCHC RDW Plt Count MPV Neut % (Auto) Lymph % (Auto) [place] % (Auto) Eos % (Auto) Baso % (Auto) Neut # (Auto) Lymph # (Auto) [place] # (Auto) Eos # (Auto) Baso # (Auto) PT INR APTT Sodium 137 Potassium 5.3 H Chloride 104 Carbon Dioxide 19 L Anion Gap 20 BUN 50 H Creatinine 6.8 H Est GFR ( Amer) 7 Est GFR (Non-Af Amer) 6 POC Glucose (mg/dL) Random Glucose 80 Calcium 8.7 Phosphorus Magnesium Iron TIBC % Saturation Ferritin Total Bilirubin 0.5 AST 26 ALT 26 Alkaline Phosphatase 46 NT-Pro-B Natriuret Pep Total Protein 6.7 Albumin 3.6 Globulin 3.0 Albumin/Globulin Ratio 1.2 Lipase Vitamin B12 Folate Urine Color Urine Clarity Urine pH Ur Specific [place] Urine Protein Urine Glucose (UA) Urine Ketones Urine Blood Urine Nitrate Urine Bilirubin Urine Urobilinogen Ur Leukocyte Esterase Urine WBC (Auto) Urine RBC (Auto) Ur Squamous Epith Cells Amorphous Sediment Urine Bacteria Ur Random Creatinine 40.8 U Random Total Protein Ur Random Sodium 117 Ur Random Potassium 19.0 Complement C3 Complement C4 Hep Bs Antigen Hep Bs Antibody Hep B Core IgM Ab Hepatitis C Antibody HIV 1&2 Antibody Screen 09/26/18 09/26/18 09/26/18 08:44 08:45 11:24 WBC RBC Hgb Hct MCV MCH MCHC RDW Plt Count MPV Neut % (Auto) Lymph % (Auto) [place] % (Auto) Eos % (Auto) Baso % (Auto) Neut # (Auto) Lymph # (Auto) [place] # (Auto) Eos # (Auto) Baso # (Auto) PT INR APTT Sodium Potassium Chloride Carbon Dioxide Anion Gap BUN Creatinine Est GFR ( Amer) Est GFR (Non-Af Amer) POC Glucose (mg/dL) 148 H Random Glucose Calcium Phosphorus Magnesium Iron TIBC % Saturation Ferritin Total Bilirubin AST ALT Alkaline Phosphatase NT-Pro-B Natriuret Pep Total Protein Albumin Globulin Albumin/Globulin Ratio Lipase Vitamin B12 Folate Urine Color Urine Clarity Urine pH Ur Specific [place] Urine Protein Urine Glucose (UA) Urine Ketones Urine Blood Urine Nitrate Urine Bilirubin Urine Urobilinogen Ur Leukocyte Esterase Urine WBC (Auto) Urine RBC (Auto) Ur Squamous Epith Cells Amorphous Sediment Urine Bacteria Ur Random Creatinine U Random Total Protein 56.0 H Ur Random Sodium 117 Ur Random Potassium 19.0 Complement C3 Complement C4 Hep Bs Antigen Hep Bs Antibody Hep B Core IgM Ab Hepatitis C Antibody HIV 1&2 Antibody Screen 09/26/18 09/26/18 09/26/18 11:40 11:40 11:40 WBC RBC Hgb Hct MCV MCH MCHC RDW Plt Count MPV Neut % (Auto) Lymph % (Auto) [place] % (Auto) Eos % (Auto) Baso % (Auto) Neut # (Auto) Lymph # (Auto) [place] # (Auto) Eos # (Auto) Baso # (Auto) PT INR APTT Sodium 135 Potassium 6.0 H Chloride 103 Carbon Dioxide 18 L Anion Gap 20 BUN 54 H Creatinine 7.2 H Est GFR ( Amer) 7 Est GFR (Non-Af Amer) 6 POC Glucose (mg/dL) Random Glucose 144 H Calcium 8.8 Phosphorus Magnesium Iron TIBC % Saturation Ferritin 45.1 Total Bilirubin AST ALT Alkaline Phosphatase NT-Pro-B Natriuret Pep Total Protein Albumin Globulin Albumin/Globulin Ratio Lipase Vitamin B12 383 Folate > 20.0 Urine Color Urine Clarity Urine pH Ur Specific [place] Urine Protein Urine Glucose (UA) Urine Ketones Urine Blood Urine Nitrate Urine Bilirubin Urine Urobilinogen Ur Leukocyte Esterase Urine WBC (Auto) Urine RBC (Auto) Ur Squamous Epith Cells Amorphous Sediment Urine Bacteria Ur Random Creatinine U Random Total Protein Ur Random Sodium Ur Random Potassium Complement C3 129.0 Complement C4 41.9 Hep Bs Antigen Negative Hep Bs Antibody Hep B Core IgM Ab Negative Hepatitis C Antibody Negative HIV 1&2 Antibody Screen Negative 09/26/18 09/26/18 09/26/18 11:40 11:40 11:42 WBC 5.1 RBC 3.62 L Hgb 11.3 Hct 32.8 L MCV 90.6 MCH 31.2 H MCHC 34.5 RDW 13.3 Plt Count 196 MPV 9.1 Neut % (Auto) 62.6 Lymph % (Auto) 24.9 [place] % (Auto) 10.3 H Eos % (Auto) 1.7 Baso % (Auto) 0.5 Neut # (Auto) 3.2 Lymph # (Auto) 1.3 [place] # (Auto) 0.5 Eos # (Auto) 0.1 Baso # (Auto) 0.0 PT INR APTT Sodium Potassium Chloride Carbon Dioxide Anion Gap BUN Creatinine Est GFR ( Amer) Est GFR (Non-Af Amer) POC Glucose (mg/dL) 134 H Random Glucose Calcium Phosphorus Magnesium Iron 51 TIBC 307 % Saturation 17 L Ferritin Total Bilirubin AST ALT Alkaline Phosphatase NT-Pro-B Natriuret Pep Total Protein Albumin Globulin Albumin/Globulin Ratio Lipase Vitamin B12 Folate Urine Color Urine Clarity Urine pH Ur Specific [place] Urine Protein Urine Glucose (UA) Urine Ketones Urine Blood Urine Nitrate Urine Bilirubin Urine Urobilinogen Ur Leukocyte Esterase Urine WBC (Auto) Urine RBC (Auto) Ur Squamous Epith Cells Amorphous Sediment Urine Bacteria Ur Random Creatinine U Random Total Protein Ur Random Sodium Ur Random Potassium Complement C3 Complement C4 Hep Bs Antigen Hep Bs Antibody Hep B Core IgM Ab Hepatitis C Antibody HIV 1&2 Antibody Screen 09/26/18 09/26/18 11:56 15:18 WBC RBC Hgb Hct MCV MCH MCHC RDW Plt Count MPV Neut % (Auto) Lymph % (Auto) [place] % (Auto) Eos % (Auto) Baso % (Auto) Neut # (Auto) Lymph # (Auto) [place] # (Auto) Eos # (Auto) Baso # (Auto) PT INR APTT Sodium 137 Potassium 5.9 H Chloride 104 Carbon Dioxide 20 L Anion Gap 18 BUN 50 H Creatinine 7.4 H* Est GFR ( Amer) 7 Est GFR (Non-Af Amer) 6 POC Glucose (mg/dL) Random Glucose 98 Calcium 8.7 Phosphorus Magnesium Iron TIBC % Saturation Ferritin Total Bilirubin AST ALT Alkaline Phosphatase NT-Pro-B Natriuret Pep Total Protein Albumin Globulin Albumin/Globulin Ratio Lipase Vitamin B12 Folate Urine Color Urine Clarity Urine pH Ur Specific [place] Urine Protein Urine Glucose (UA) Urine Ketones Urine Blood Urine Nitrate Urine Bilirubin Urine Urobilinogen Ur Leukocyte Esterase Urine WBC (Auto) Urine RBC (Auto) Ur Squamous Epith Cells Amorphous Sediment Urine Bacteria Ur Random Creatinine U Random Total Protein Ur Random Sodium Ur Random Potassium Complement C3 Complement C4 Hep Bs Antigen Hep Bs Antibody Positive Hep B Core IgM Ab Hepatitis C Antibody HIV 1&2 Antibody Screen
[2018-09-26] MEDS: Sodium Chloride 0.9% 1,000 ML IV SCH ×2 (18:06→18:07)
[2018-09-26] MEDS: metroNIDAZOLE IV 500 mg/100 ml 500 MG/100 ML BAG IVPB SCH (18:08)
[2018-09-26] MEDS: Ciprofloxacin 400mg/200ml D5W 400 MG/200 ML BAG IVPB SCH (21:15)
[2018-09-26 22:04] LABS: CALCIUM 8.9 mg/dl (8.6-10.4)
[2018-09-27] MEDS: Sodium Chloride 0.9% 1,000 ML IV SCH ×3 (00:49→19:53)
[2018-09-27] MEDS ORDERED: Sod Polystyrene Sulf 15 gm/60 ml Susp PO ONE (01:01)
[2018-09-27] MEDS: metroNIDAZOLE IV 500 mg/100 ml 500 MG/100 ML BAG IVPB SCH ×3 (01:19→17:49)
[2018-09-27 07:38] LABS: BASO % 0.9 % (0.0-2.0); EOS # 0.2 K/uL (0.0-0.7); EOS % 4.5 % (0.0-4.0); HEMOGLOBIN 10.9 g/dL (11.0-16.0); LYMPH # 0.9 K/uL (1.0-4.3); LYMPH % 22.4 % (20.0-40.0); MEAN CELL VOLUME 89.9 fL (81.0-99.0); MEAN CORPUSCULAR HEMOGLOBIN 31.4 pg (27.0-31.0); MONO # 0.4 K/uL (0.0-0.8); MONO % 11.3 % (0.0-10.0); NEUT # 2.4 K/uL (1.8-7.0); NEUT % 60.9 % (50.0-75.0); RBC 3.46 Mil/uL (3.80-5.20); RED CELL DISTRIBUTION WIDTH 13.1 % (11.5-14.5)
[2018-09-27] MEDS: (Novolin R) Insulin Human Regular 100 units/ml vial SC SCH ×4 (08:13→21:55)
[2018-09-27 08:30] LABS: ALB/GLOB RATIO 1.1 (1.0-2.1); ALBUMIN 3.8 g/dL (3.5-5.0); CALCIUM 8.8 mg/dl (8.6-10.4)
--- NOTE | 2018-09-27 11:12 | CP.PCM.PN ---
Subjective - Date & Time of Evaluation Date of Evaluation: 09/27/18 Time of Evaluation: 11:11 - Subjective Subjective: Nephrology Consultation Note: Assessment: Stable Acute Kidney Injury (N17.9) likely due to fluid loss, ATN hyperkalemia, acidosis DM, HTN, Anemia acute gastroenteritis Plan No acute need for renal replacement therapy at this time. but may need soon and will need close follow up Hypertension control with meds as ordered. Maintain hemodynamics stable. Avoid hypotension. Patient not on ACEI/ARB due to recent CINTHIA Monitor Input/Output, daily weights and renal function with basic metabolic panel added sodium bicarb medical management of hyperkalemia in meantime added iron and MVI supplements Check urine analysis, spot protein/creatinine, albumin/creatinine ratio, renal sonogram Check GN work up as C3, C4, DILCIA, Anti dsDNA,ANCA (MPO and [place]-3),HIV/Hep B and Hep C serology CPK level,uric acid level Anemia work up with TSAT/Ferritin/Vitamin B12/folate, serum protein electrophoresis with immunofixation, serum free light chain assay ([place]/Lambda) Check for 25-OH vitamin D, iPTH, phosphorus level. Dose meds/antibiotics for reduced GFR. Avoid fleets enema/magnesium based laxatives. Avoid nephrotoxins/NSAIDs/ iodinated contrast (unless needed emergently) Glycemic control Further work up/management as per primary team Thanks for allowing me to participate in care of your patient. Will follow patient with you. Please call if any Qs. had d/w team Dr Naren Doyle Office: [phone] Chief Complaint; dehydration Reason for consult: Acute Kidney Injury HPI: Pt is a 58 F with hx of diabetes Mellitus ( years), hypertension (years) and now known renal history presented with complaints of nausea/vomitting and loose stool x 2 days with decreased oral intake. renal consult for CINTHIA. Denies OTC/herbal meds or NSAIDs No recent iodinated contrast exposure. No obvious episodes of low BP. ROS: Cardiovascular: No chest pain. Pulmonary: No shortness of breath Gastrointestinal: denies abdominal pain c/o nausea. c/o vomiting. now she feels better Genitourinary: No pain while urinating. Denies blood in urine. All other negative except as mentioned in HPI Physical Examination: General Appearance: Comfortable, in no acute respiratory distress, co-operative . Vitals reviewed and noted as below Head; Atraumatic, normocephalic ENT: no ulcers no thrush. Tongue is midline. Oropharynx: no rash or ulcers. EYES: Pupils are equal, round and reactive to light accommodation. Eye muscles and extraocular movement intact. Sclera is anicteric. Neck; supple no lymphadenopathy, no thyromegaly or bruit Lungs: Normal respiratory rate/effort. Breath sounds bilateral equal and clear Heart: Normal rate. s1s2 normal. No rub or gallop. Extremities: no edema. No varicose veins Neurological: Patient is alert, awake and oriented to person, place and time. No focal deficit. Strength bilateral appropriate and equal Skin: Warm and dry. Normal turgor. No rash. Palpitation: Normal elasticity for age Abdomen: Abdomen is soft. Bowel sounds +. There is no abdominal tenderness, no guarding/rigidity no organomegaly Psych: normal insight and normal affect/mood MSK: no joint tenderness or swelling. Digits and nails normal, no deformity : kidney or bladder not palpable Labs/imaging reviewed. Past medical history, past surgical history, family history, social history, allergy reviewed and noted as below Family hx: no hx of CKD. Rest non-contributory Objective - Vital Signs/Intake and Output Vital Signs (last 24 hours): Temp Pulse Resp BP Pulse Ox 99.8 F H 91 H 20 129/81 96 09/27/18 08:17 09/27/18 08:17 09/27/18 08:17 09/27/18 08:17 09/27/18 08:17 Intake and Output: 09/27/18 09/27/18 06:59 18:59 Intake Total 1080 Balance 1080 - Medications Medications: Current Medications Acetaminophen (Tylenol 325mg Tab) 650 mg PO Q6 PRN PRN Reason: Pain, Mild (1-3) Calcium Acetate (Phoslo) 667 mg PO BIDCC [facility] Last Admin: 09/27/18 10:17 Dose: 667 mg Dextrose (Dextrose 50% Inj) 0 ml IV STAT PRN; Protocol PRN Reason: Hypoglycemia Protocol Dextrose (Glutose 15) 0 gm PO ONCE PRN; Protocol PRN Reason: Hypoglycemia Protocol Ferrous Gluconate (Fergon) 324 mg PO TID [facility] Glucagon (Glucagen Diagnostic Kit) 0 mg IM STAT PRN; Protocol PRN Reason: Hypoglycemia Protocol Heparin Sodium (Porcine) (Heparin) 5,000 units SC Q12 [facility] Last Admin: 09/27/18 10:16 Dose: 5,000 units Dextrose (Dextrose 5% In Water 1000 Ml) 1,000 mls @ 0 mls/hr IV .Q0M PRN; Protocol PRN Reason: Hypoglycemia Protocol Sodium Chloride (Sodium Chloride 0.9%) 1,000 mls @ 110 mls/hr IV .Q9H6M [facility] Last Admin: 09/27/18 00:49 Dose: Not Given Ciprofloxacin (Cipro 400mg/200ml Dsw) 400 mg in 200 mls @ 133 mls/hr IVPB Q24H [facility]; Protocol Last Admin: 09/26/18 21:15 Dose: 133 mls/hr Metronidazole (Flagyl) 500 mg in 100 mls @ 100 mls/hr IVPB Q8H [facility]; Protocol Last Admin: 09/27/18 01:19 Dose: 100 mls/hr Influenza Virus Vaccine (Fluzone Quad [id number]) 60 mcg IM .ONCE ONE Stop: 09/28/18 10:01 Insulin Human Regular (Novolin R) 0 unit SC ACHS [facility]; Protocol Last Admin: 09/27/18 08:13 Dose: 2 units Ondansetron HCl (Zofran Inj) 4 mg IVP Q8H PRN PRN Reason: Nausea/Vomiting Last Admin: 09/26/18 00:19 Dose: 4 mg Pantoprazole Sodium (Protonix Inj) 40 mg IVP DAILY [facility] Last Admin: 09/27/18 10:15 Dose: 40 mg Pneumococcal Polyvalent Vaccine (Pneumovax 23 Vaccine) 0.5 ml IM .ONCE ONE Stop: 09/28/18 10:01 Rosuvastatin Calcium (Crestor) 5 mg PO HS [facility] Last Admin: 09/26/18 21:30 Dose: 5 mg Sodium Bicarbonate (Sodium Bicarbonate Tab) 650 mg PO BID [facility] Last Admin: 09/27/18 10:15 Dose: 650 mg Vitamin B Complex/Vit C/Folic Acid (Nephro-Brayden) 1 tab PO 0800 [facility] - Labs Labs: 09/27/18 07:32 09/27/18 07:32 PT 10.7 SECONDS (9.7-12.2) 09/25/18 12:31 INR 1.0 09/25/18 12:31 APTT 32 SECONDS (21-34) 09/25/18 12:31
--- NOTE | 2018-09-27 13:22 | CP.PCM.PN ---
Subjective - Date & Time of Evaluation Date of Evaluation: 09/27/18 Time of Evaluation: 13:22 - Subjective Subjective: Medicine Dr. Ta's Service Patient seen and examined at bedside this morning. Patient denies nausea and vomiting - it has resolved. She denies chest pain, SOB, diarrhea, fever, dysuria. She has no acute complaints other than her right foot pain. Objective - Vital Signs/Intake and Output Vital Signs (last 24 hours): Temp Pulse Resp BP Pulse Ox 99.8 F H 91 H 20 129/81 96 09/27/18 08:17 09/27/18 08:17 09/27/18 08:17 09/27/18 08:17 09/27/18 08:17 Intake and Output: 09/27/18 09/27/18 06:59 18:59 Intake Total 1080 Balance 1080 - Medications Medications: Current Medications Acetaminophen (Tylenol 325mg Tab) 650 mg PO Q6 PRN PRN Reason: Pain, Mild (1-3) Calcium Acetate (Phoslo) 667 mg PO BIDCC [facility] Last Admin: 09/27/18 10:17 Dose: 667 mg Dextrose (Dextrose 50% Inj) 0 ml IV STAT PRN; Protocol PRN Reason: Hypoglycemia Protocol Dextrose (Glutose 15) 0 gm PO ONCE PRN; Protocol PRN Reason: Hypoglycemia Protocol Ferrous Gluconate (Fergon) 324 mg PO TID [facility] Glucagon (Glucagen Diagnostic Kit) 0 mg IM STAT PRN; Protocol PRN Reason: Hypoglycemia Protocol Heparin Sodium (Porcine) (Heparin) 5,000 units SC Q12 [facility] Last Admin: 09/27/18 10:16 Dose: 5,000 units Dextrose (Dextrose 5% In Water 1000 Ml) 1,000 mls @ 0 mls/hr IV .Q0M PRN; Protocol PRN Reason: Hypoglycemia Protocol Sodium Chloride (Sodium Chloride 0.9%) 1,000 mls @ 110 mls/hr IV .Q9H6M [facility] Last Admin: 09/27/18 12:06 Dose: Not Given Ciprofloxacin (Cipro 400mg/200ml Dsw) 400 mg in 200 mls @ 133 mls/hr IVPB Q24H [facility]; Protocol Last Admin: 09/26/18 21:15 Dose: 133 mls/hr Metronidazole (Flagyl) 500 mg in 100 mls @ 100 mls/hr IVPB Q8H [facility]; Protocol Last Admin: 09/27/18 11:40 Dose: Not Given Influenza Virus Vaccine (Fluzone Quad [id number]) 60 mcg IM .ONCE ONE Stop: 09/28/18 10:01 Insulin Human Regular (Novolin R) 0 unit SC ACHS [facility]; Protocol Last Admin: 09/27/18 11:58 Dose: 3 units Ondansetron HCl (Zofran Inj) 4 mg IVP Q8H PRN PRN Reason: Nausea/Vomiting Last Admin: 09/26/18 00:19 Dose: 4 mg Pantoprazole Sodium (Protonix Inj) 40 mg IVP DAILY [facility] Last Admin: 09/27/18 10:15 Dose: 40 mg Pneumococcal Polyvalent Vaccine (Pneumovax 23 Vaccine) 0.5 ml IM .ONCE ONE Stop: 09/28/18 10:01 Rosuvastatin Calcium (Crestor) 5 mg PO HS [facility] Last Admin: 09/26/18 21:30 Dose: 5 mg Sodium Bicarbonate (Sodium Bicarbonate Tab) 650 mg PO BID [facility] Last Admin: 09/27/18 10:15 Dose: 650 mg Vitamin B Complex/Vit C/Folic Acid (Nephro-Brayden) 1 tab PO 0800 [facility] - Labs Labs: 09/27/18 07:32 09/27/18 07:32 PT 10.7 SECONDS (9.7-12.2) 09/25/18 12:31 INR 1.0 09/25/18 12:31 APTT 32 SECONDS (21-34) 09/25/18 12:31 - Constitutional Appears: Well - Head Exam Head Exam: ATRAUMATIC, NORMAL INSPECTION - Eye Exam Eye Exam: EOMI, Normal appearance - Respiratory Exam Respiratory Exam: Clear to Ausculation Bilateral, NORMAL BREATHING PATTERN. absent: Decreased Breath Sounds, Rales, Rhonchi, Wheezes - Cardiovascular Exam Cardiovascular Exam: REGULAR RHYTHM - GI/Abdominal Exam GI & Abdominal Exam: Soft, Normal Bowel Sounds - Extremities Exam Extremities Exam: Normal Capillary Refill (R foot/ankle MOLINA bandaged) - Back Exam Back Exam: absent: CVA tenderness (L), CVA tenderness (R) - Neurological Exam Neurological Exam: Alert, Awake, Oriented x3 - Psychiatric Exam Psychiatric exam: Normal Affect, Normal Mood - Skin Skin Exam: Dry, Intact, Normal Color, Warm Assessment and Plan - Assessment and Plan (Free Text) Assessment: Acute kidney injury: - Likely pre-renal and post-renal (mixed) etiology, dehydration 2/2 multiple episodes of nausea and vomiting which shows a picture of pre-renal. But FENa 14% suggests mixed etiology. Possible component of ATN - BUN/Cr PMD's office (09/21): 13/0.9 - Renal U/S (09/26): Mildly increased cortical echogenicity may indicate intrinsic medical renal disease. Both kidneys are otherwise unremarkable appearing. - Abd/pelvic CT (09/26): Diverticulosis. Wall thickening inflammatory stranding involving the distal left colon may reflect acute diverticulitis. Marked wall thickening of the duodenum. Correlate clinically for enteritis. Moderate hiatal hernia and marked distal esophageal wall thickening. If indicated, recommend further evaluation with endoscopy. - CXR (09/26): Mild patchy atelectasis or infiltrate medial right lower lobe. - NS @ 110mls/hr continuous - Nephrology consulted, Dr. Doyle - Urine protein: 56 - C3/C4: WNL - Lipase: 507 - Urine studies, CPK, intact PTH: f/u - DILCIA, ANCA, DS-DNA, immunofixation, [place]/Lambda light chains: f/u - Get recent lab results from PMD Dr. Foster diverticulitis: - Abd/pelvic CT (09/26): Diverticulosis. Wall thickening inflammatory stranding involving the distal left colon may reflect acute diverticulitis. Marked wall thickening of the duodenum. Correlate clinically for enteritis. Moderate hiatal hernia and marked distal esophageal wall thickening. If indicated, recommend further evaluation with endoscopy. - Ciprofloxacin 400mg IV QD - Renally-dosed due to acute kidney failure - started 09/26 - Flagyl 500mg IV Q8H started 09/26 - Upon discharge, patient instructed to follow up with GI and get a colonoscopy 8 weeks after resolution of diverticulitis Moderate hiatal hernia: - As shown on Abd CT - Protonix 40mg IV QD - Upon discharge, will prescribe patient Omeprazole and follow up with GI Right ankle pain: - Likely 2/2 sprain but cannot r/o gout, especially in the setting of renal failure - ordered uric acid 09/27 - f/u - R ankle Xray (09/26): No acute fracture or dislocation appreciated right ankle. - Hold NSAIDs for pain due to renal failure T2DM - Home meds hold Metformin and Glimerpide 2mg PO due to CINTHIA - Accuchecks ACHS - ISS - Hypoglycemia protocol -DVT ppx Heparin 5000 u SC Q12 and SCDs -GI ppx not indicated dispo: Pending greater improvement of renal function, qAM labs Case discussed with Dr. Cely Brumfield PGY-1
[2018-09-27] MEDS ORDERED: Calcium Gluconate 4.65 mEq/10 ml Inj IVP ONE (14:38)
[2018-09-27] MEDS: Ciprofloxacin 400mg/200ml D5W 400 MG/200 ML BAG IVPB SCH (19:21)
[2018-09-28] MEDS: metroNIDAZOLE IV 500 mg/100 ml 500 MG/100 ML BAG IVPB SCH ×3 (02:07→18:29)
[2018-09-28] MEDS: Sodium Chloride 0.9% 1,000 ML IV SCH ×2 (05:20→23:49)
[2018-09-28 06:28] LABS: BASO % 0.6 % (0.0-2.0); EOS # 0.3 K/uL (0.0-0.7); EOS % 7.2 % (0.0-4.0); HEMOGLOBIN 10.3 g/dL (11.0-16.0); LYMPH # 1.1 K/uL (1.0-4.3); LYMPH % 24.4 % (20.0-40.0); MEAN CELL VOLUME 88.7 fL (81.0-99.0); MEAN CORPUSCULAR HEMOGLOBIN 30.6 pg (27.0-31.0); MEAN CORPUSCULAR HGB CONC 34.5 g/dL (33.0-37.0); MEAN PLATELET VOLUME 8.7 fL (7.2-11.7); MONO # 0.6 K/uL (0.0-0.8); MONO % 12.9 % (0.0-10.0); NEUT # 2.6 K/uL (1.8-7.0); NEUT % 54.9 % (50.0-75.0); RBC 3.37 Mil/uL (3.80-5.20); RED CELL DISTRIBUTION WIDTH 12.9 % (11.5-14.5); WHITE BLOOD COUNT 4.7 K/uL (4.8-10.8)
[2018-09-28 06:46] LABS: ALB/GLOB RATIO 1.1 (1.0-2.1); ALBUMIN 3.5 g/dL (3.5-5.0); CALCIUM 8.2 mg/dl (8.6-10.4)
[2018-09-28] MEDS: (Novolin R) Insulin Human Regular 100 units/ml vial SC SCH ×4 (08:15→21:49)
[2018-09-28] MEDS: Multivitamin Vitamin B Complex (Nephro-Vite) Tab PO SCH (08:16)
[2018-09-28] MEDS ORDERED: Pneumococcal 23-Valent Vaccine IM ONE (10:00)
[2018-09-28] MEDS ORDERED: Influenza Vaccine 60 MCG/0.5 ML SYR (3 yr & up) IM ONE (10:00)
[2018-09-28 11:58] LABS: ALBUMIN (PEP) 3.6 g/dL (3.8-4.8); ALPHA-1-GLOBULIN (PEP) 0.4 g/dL (0.2-0.3)
[2018-09-28] MEDS: Magnesium Sulfate 1 gm in D5W 1 GM/100 ML BAG IVPB SCH ×4 (12:33→17:36)
--- NOTE | 2018-09-28 12:59 | CP.PCM.PN ---
<Sanchez Llanes - Last Filed: 09/28/18 16:22> Subjective - Date & Time of Evaluation Date of Evaluation: 09/28/18 Time of Evaluation: 12:59 - Subjective Subjective: PGY-1 Medicine progress note for Dr. Hartmann Patient seen and examined at bedside. Patient is still complaining of right ankle pain. She denies any nausea or diarrhea today. She further denies fevers, chills, shortness of breath, chest pain, abdominal pain, or urinary symptoms. Objective - Vital Signs/Intake and Output Vital Signs (last 24 hours): Temp Pulse Resp BP Pulse Ox 98.7 F 80 20 112/73 97 09/28/18 08:00 09/28/18 08:00 09/28/18 08:00 09/28/18 08:00 09/28/18 08:00 Intake and Output: 09/28/18 09/28/18 06:59 18:59 Intake Total 2059 Balance 2059 - Medications Medications: Current Medications Acetaminophen (Tylenol 325mg Tab) 650 mg PO Q6 PRN PRN Reason: Pain, Mild (1-3) Last Admin: 09/28/18 03:24 Dose: 650 mg Calcium Acetate (Phoslo) 667 mg PO BIDCC [facility] Last Admin: 09/28/18 08:16 Dose: 667 mg Dextrose (Dextrose 50% Inj) 0 ml IV STAT PRN; Protocol PRN Reason: Hypoglycemia Protocol Dextrose (Glutose 15) 0 gm PO ONCE PRN; Protocol PRN Reason: Hypoglycemia Protocol Ferrous Gluconate (Fergon) 324 mg PO TID [facility] Last Admin: 09/28/18 09:21 Dose: 324 mg Glucagon (Glucagen Diagnostic Kit) 0 mg IM STAT PRN; Protocol PRN Reason: Hypoglycemia Protocol Heparin Sodium (Porcine) (Heparin) 5,000 units SC Q12 [facility] Last Admin: 09/28/18 09:21 Dose: 5,000 units Dextrose (Dextrose 5% In Water 1000 Ml) 1,000 mls @ 0 mls/hr IV .Q0M PRN; Protocol PRN Reason: Hypoglycemia Protocol Sodium Chloride (Sodium Chloride 0.9%) 1,000 mls @ 110 mls/hr IV .Q9H6M [facility] Last Admin: 09/28/18 05:20 Dose: 110 mls/hr Ciprofloxacin (Cipro 400mg/200ml Dsw) 400 mg in 200 mls @ 133 mls/hr IVPB Q24H [facility]; Protocol Last Admin: 09/27/18 19:21 Dose: 133 mls/hr Metronidazole (Flagyl) 500 mg in 100 mls @ 100 mls/hr IVPB Q8H [facility]; Protocol Last Admin: 09/28/18 11:18 Dose: 100 mls/hr Insulin Human Regular (Novolin R) 0 unit SC ACHS [facility]; Protocol Last Admin: 09/28/18 12:32 Dose: 4 units Ondansetron HCl (Zofran Inj) 4 mg IVP Q8H PRN PRN Reason: Nausea/Vomiting Last Admin: 09/26/18 00:19 Dose: 4 mg Pantoprazole Sodium (Protonix Inj) 40 mg IVP DAILY [facility] Last Admin: 09/28/18 09:24 Dose: 40 mg Rosuvastatin Calcium (Crestor) 5 mg PO HS [facility] Last Admin: 09/27/18 21:55 Dose: 5 mg Sodium Bicarbonate (Sodium Bicarbonate Tab) 650 mg PO BID [facility] Last Admin: 09/28/18 09:21 Dose: 650 mg Vitamin B Complex/Vit C/Folic Acid (Nephro-Brayden) 1 tab PO 0800 [facility] Last Admin: 09/28/18 08:16 Dose: 1 tab - Labs Labs: 09/28/18 06:18 09/28/18 06:18 PT 10.7 SECONDS (9.7-12.2) 09/25/18 12:31 INR 1.0 09/25/18 12:31 APTT 32 SECONDS (21-34) 09/25/18 12:31 - Additional Findings Additional findings: - Constitutional Appears: Not in acute distress - Head Exam Head Exam: ATRAUMATIC, NORMOCEPHALIC - Eye Exam Eye Exam: EOMI, Normal appearance, PERRL - ENT Exam ENT Exam: Mucous Membranes Dry - Neck Exam Neck exam: Positive for: Full Rom, Normal Inspection - Respiratory Exam Respiratory Exam: Clear to Auscultation Bilateral. absent: Decreased Breath Sounds, Rales, Rhonchi, Wheezes - Cardiovascular Exam Cardiovascular Exam: RRR, +S1, +S2 - GI/Abdominal Exam GI & Abdominal Exam: Normal Bowel Sounds, Soft. absent: Guarding, Rebound, Tenderness - Extremities Exam Extremities exam: Mild swelling on right lateral malleolus and tender to palpation. Positive for: full ROM, normal capillary refill, normal inspection, pedal pulses present. Negative for: calf tenderness, pedal edema - Back Exam Back exam: absent: CVA tenderness (L), CVA tenderness (R) - Neurological Exam Neurological exam: Alert, CN II-XII Intact, Oriented x3 - Psychiatric Exam Psychiatric exam: Normal Affect, Normal Mood - Skin Skin Exam: Dry, Intact, Normal Color, Warm Assessment and Plan - Assessment and Plan (Free Text) Assessment: 58 year old female with PMHx of DM2, HLD, and HTN presented to the ED with nausea, vomiting, and diarrhea for 1 day. She is admitted for CINTHIA with Cr of 7.0 on admission. Plan: Acute kidney injury: - Likely pre-renal and post-renal (mixed) etiology, dehydration 2/2 multiple episodes of nausea and vomiting. But FENa 14% suggests mixed etiology. Possible component of ATN. - BUN/Cr: 37/4.8 - downtrending - BUN/Cr PMD's office (09/21): 13/0.9 - Renal U/S (09/26): Mildly increased cortical echogenicity may indicate intrinsic medical renal disease. Both kidneys are otherwise unremarkable appearing. - Abd/pelvic CT (09/26): Diverticulosis. Wall thickening inflammatory stranding involving the distal left colon may reflect acute diverticulitis. Marked wall thickening of the duodenum. Correlate clinically for enteritis. Moderate hiatal hernia and marked distal esophageal wall thickening. If indicated, recommend further evaluation with endoscopy. - CXR (09/26): Mild patchy atelectasis or infiltrate medial right lower lobe. - EKG: NSR @ 96 - NS @ 110mls/hr - Nephrology consulted, Dr. Doyle - Urine protein: 56 - C3/C4: WNL - Lipase: 507 - Urine studies, CPK, intact PTH: f/u - DILCIA, ANCA, DS-DNA, immunofixation, [place]/Lambda light chains: f/u Right ankle pain: - MOLINA bandages and ice packs - R ankle Xray (09/26): No acute fracture or dislocation appreciated right ankle - Podiatry consulted, Dr. Umana - PT/OT Diabetes Mellitus 2: - Home meds hold Metformin and Glimerpide 2mg PO due to CINTHIA - Accuchecks ACHS - ISS - Hypoglycemia protocol Hyperlipidemia: - Crestor 5mg PO HS - Hold Prophylaxis - Regular diet - Heparin 5000 u SC Q12 - SCDs - GI ppx not indicated Case discussed with Dr. Mary Kate Llanes, PGY-1 <Leandra Hartmann V - Last Filed: 09/28/18 20:31> Objective - Vital Signs/Intake and Output Vital Signs (last 24 hours): Temp Pulse Resp BP Pulse Ox 98.2 F 85 20 128/74 97 09/28/18 16:00 09/28/18 16:00 09/28/18 16:00 09/28/18 16:00 09/28/18 16:00 Intake and Output: 09/28/18 09/29/18 18:59 06:59 Intake Total 1380 Balance 1380 - Medications Medications: Current Medications Acetaminophen (Tylenol 325mg Tab) 650 mg PO Q6 PRN PRN Reason: Pain, Mild (1-3) Last Admin: 09/28/18 03:24 Dose: 650 mg Calcium Acetate (Phoslo) 667 mg PO BIDCC [facility] Last Admin: 09/28/18 17:39 Dose: 667 mg Dextrose (Dextrose 50% Inj) 0 ml IV STAT PRN; Protocol PRN Reason: Hypoglycemia Protocol Dextrose (Glutose 15) 0 gm PO ONCE PRN; Protocol PRN Reason: Hypoglycemia Protocol Ferrous Gluconate (Fergon) 324 mg PO TID [facility] Last Admin: 09/28/18 17:39 Dose: 324 mg Glucagon (Glucagen Diagnostic Kit) 0 mg IM STAT PRN; Protocol PRN Reason: Hypoglycemia Protocol Heparin Sodium (Porcine) (Heparin) 5,000 units SC Q12 [facility] Last Admin: 09/28/18 09:21 Dose: 5,000 units Dextrose (Dextrose 5% In Water 1000 Ml) 1,000 mls @ 0 mls/hr IV .Q0M PRN; Protocol PRN Reason: Hypoglycemia Protocol Sodium Chloride (Sodium Chloride 0.9%) 1,000 mls @ 110 mls/hr IV .Q9H6M [facility] Last Admin: 09/28/18 05:20 Dose: 110 mls/hr Ciprofloxacin (Cipro 400mg/200ml Dsw) 400 mg in 200 mls @ 133 mls/hr IVPB Q24H [facility]; Protocol Last Admin: 09/27/18 19:21 Dose: 133 mls/hr Metronidazole (Flagyl) 500 mg in 100 mls @ 100 mls/hr IVPB Q8H [facility]; Protocol Last Admin: 09/28/18 18:29 Dose: 100 mls/hr Insulin Human Regular (Novolin R) 0 unit SC ACHS [facility]; Protocol Last Admin: 09/28/18 16:36 Dose: 2 units Ondansetron HCl (Zofran Inj) 4 mg IVP Q8H PRN PRN Reason: Nausea/Vomiting Last Admin: 09/26/18 00:19 Dose: 4 mg Pantoprazole Sodium (Protonix Inj) 40 mg IVP DAILY [facility] Last Admin: 09/28/18 09:24 Dose: 40 mg Rosuvastatin Calcium (Crestor) 5 mg PO HS [facility] Last Admin: 09/27/18 21:55 Dose: 5 mg Sodium Bicarbonate (Sodium Bicarbonate Tab) 650 mg PO BID [facility] Last Admin: 09/28/18 17:39 Dose: 650 mg Vitamin B Complex/Vit C/Folic Acid (Nephro-Brayden) 1 tab PO 0800 [facility] Last Admin: 09/28/18 08:16 Dose: 1 tab - Labs Labs: 09/28/18 06:18 09/28/18 06:18 PT 10.7 SECONDS (9.7-12.2) 09/25/18 12:31 INR 1.0 09/25/18 12:31 APTT 32 SECONDS (21-34) 09/25/18 12:31 Attending/Attestation - Attestation I have personally seen and examined this patient.: Yes I have fully participated in the care of the patient.: Yes I have reviewed all pertinent clinical information, including history, physical exam and plan: Yes Notes (Text): Patient seen, examined and case discussed with day-time resident. Patient on admission noted to have gastroenteritis symptoms of nausea/vomitting/diarrhea-->patient noted symptoms have resolved during my exam today. Patient's creatinine improving initially 7.1 to 4.8. Prior creatinine as outpatient baseline is 0.9 from 09/21/18. Nephrology on board-->help appreciated patient to continue gentle iv hydration. Patient is on renal dose IV abx for diverticulitis/gastroenteritis; likely 7-10 day treatment. Potassium normalized following kayexlate yesterday. Assessment/Plan 1) Acute Kidney Injury Assessment/Plan * NS 110 cc/hr (active since 09/26/18) * Sodium bicarbonate 650mg PO BID (active since 09/26/18) * Nephrovite 1 tab PO 0800 * Phoslo 667mg PO BIDCC * Renal U/S (09/26): Mildly increased cortical echogenicity may indicate intrinsic medical renal disease. Both kidneys are otherwise unremarkable appearing. * Abd/pelvic CT (09/26): Diverticulosis. Wall thickening inflammatory stranding involving the distal left colon may reflect acute diverticulitis. Marked wall thickening of the duodenum. Correlate clinically for enteritis. Moderate hiatal hernia and marked distal esophageal wall thickening. If indicated, recommend further evaluation with endoscopy. * CXR (09/26): Mild patchy atelectasis or infiltrate medial right lower lobe. * Off metformin/glipitin, molina, nsaid (motrin) 2) Right ankle pain Assessment/Plan * Evaluated able to invert, esteban the foot at the ankle no point tenderness; suspecting plantar fascitis * Podiatry (Dr. Umana) on board-->help appreciated * will not start NSAID in light of acute renal failure 3) Diabetes Mellitus 2 Assessment/Plan * Home meds hold Metformin and Glimerpide 2mg PO due to CINTHIA * Accuchecks ACHS * ISS * Hypoglycemia protocol * Check a1c, and lipid panel in AM 4) Hyperlipidemia: Assessment/Plan * Crestor 5mg PO HS 5) Diverticulitis Assessment/Plan * Abd/pelvic CT (09/26): Diverticulosis. Wall thickening inflammatory stranding involving the distal left colon may reflect acute diverticulitis. Marked wall thickening of the duodenum. Correlate clinically for enteritis. Moderate hiatal hernia and marked distal esophageal wall thickening. If indicated, recommend further evaluation with endoscopy. * Ciprofloxacin 400mg IV QDaily (active since 09/26/18) * Flagyl 500mg IVPB Q8H (active since 09/26/18) * Upon discharge, patient instructed to follow up with GI and get a colonoscopy 8 weeks after resolution of diverticulitis 6) Anemia Assessment/Plan * iron: 51, TIBC: 307,% saturation: 17, Ferritin: 45.1 * Check reticulocyte count * Ferrous Gluconate 324mg PO TID * Suspected secondary to acute renal failure * Patient will need outpatient colonoscopy in light of diverticulitis 7) Hyperkalemia Assessment/Plan * Patient is off molina/arb since admission * Normalized today * Patient had received Calcium gluconate 09/26; 09/27 and Kayexlate 09/26;09/27 8) Hypertension Assessment/Plan * Off anti-hypertensives * Monitor vital signs 9) Lipid Disorder Assessment/Plan * Check lipid panel * Crestor 10) Prophylaxis Assessment/Plan * Renal non dialysis diet, 2gm * Heparin 5000 u SC Q12 * SCDs * GI ppx not indicated
--- NOTE | 2018-09-28 15:14 | CP.PCM.PN ---
Subjective - Date & Time of Evaluation Date of Evaluation: 09/28/18 Time of Evaluation: 15:13 - Subjective Subjective: Nephrology Consultation Note: Assessment: Stable Acute Kidney Injury (N17.9) likely due to fluid loss, ATN: better hyperkalemia, acidosis DM, HTN, Anemia acute gastroenteritis Plan No acute need for renal replacement therapy at this time. cr improving Hypertension control with meds as ordered. Maintain hemodynamics stable. Avoid hypotension. Patient not on ACEI/ARB due to recent CINTHIA Monitor Input/Output, daily weights and renal function with basic metabolic panel added sodium bicarb medical management of hyperkalemia in meantime on as needed basis added iron and MVI supplements Check urine analysis, spot protein/creatinine, albumin/creatinine ratio, renal sonogram Check GN work up as C3, C4, DILCIA, Anti dsDNA,ANCA (MPO and MA-3),HIV/Hep B and Hep C serology CPK level,uric acid level Anemia work up with TSAT/Ferritin/Vitamin B12/folate, serum protein electrophoresis with immunofixation, serum free light chain assay ([place]/Lambda) Check for 25-OH vitamin D, iPTH, phosphorus level. Dose meds/antibiotics for reduced GFR. Avoid fleets enema/magnesium based laxatives. Avoid nephrotoxins/NSAIDs/ iodinated contrast (unless needed emergently) Glycemic control Further work up/management as per primary team Thanks for allowing me to participate in care of your patient. Will follow patient with you. Please call if any Qs. had d/w team Dr Naren Doyle Office: [phone] Chief Complaint; dehydration Reason for consult: Acute Kidney Injury HPI: Pt is a 58 F with hx of diabetes Mellitus ( years), hypertension (years) and now known renal history presented with complaints of nausea/vomitting and loose stool x 2 days with decreased oral intake. renal consult for CINTHIA. Denies OTC/herbal meds or NSAIDs No recent iodinated contrast exposure. No obvious episodes of low BP. ROS: Cardiovascular: No chest pain. Pulmonary: No shortness of breath Gastrointestinal: denies abdominal pain no c/o nausea. no c/o vomiting. now she feels better Genitourinary: No pain while urinating. Denies blood in urine. All other negative except as mentioned in HPI Physical Examination: General Appearance: Comfortable, in no acute respiratory distress, co-operative . Vitals reviewed and noted as below Head; Atraumatic, normocephalic ENT: no ulcers no thrush. Tongue is midline. Oropharynx: no rash or ulcers. EYES: Pupils are equal, round and reactive to light accommodation. Eye muscles and extraocular movement intact. Sclera is anicteric. Neck; supple no lymphadenopathy, no thyromegaly or bruit Lungs: Normal respiratory rate/effort. Breath sounds bilateral equal and clear Heart: Normal rate. s1s2 normal. No rub or gallop. Extremities: no edema. No varicose veins Neurological: Patient is alert, awake and oriented to person, place and time. No focal deficit. Strength bilateral appropriate and equal Skin: Warm and dry. Normal turgor. No rash. Palpitation: Normal elasticity for age Abdomen: Abdomen is soft. Bowel sounds +. There is no abdominal tenderness, no guarding/rigidity no organomegaly Psych: normal insight and normal affect/mood MSK: no joint tenderness or swelling. Digits and nails normal, no deformity : kidney or bladder not palpable Labs/imaging reviewed. Past medical history, past surgical history, family history, social history, allergy reviewed and noted as below Family hx: no hx of CKD. Rest non-contributory Objective - Vital Signs/Intake and Output Vital Signs (last 24 hours): Temp Pulse Resp BP Pulse Ox 98.7 F 80 20 112/73 97 09/28/18 08:00 09/28/18 08:00 09/28/18 08:00 09/28/18 08:00 09/28/18 08:00 Intake and Output: 09/28/18 09/28/18 06:59 18:59 Intake Total 2059 Balance 2059 - Medications Medications: Current Medications Acetaminophen (Tylenol 325mg Tab) 650 mg PO Q6 PRN PRN Reason: Pain, Mild (1-3) Last Admin: 09/28/18 03:24 Dose: 650 mg [facility] Last Admin: 09/28/18 08:16 Dose: 667 mg Dextrose (Dextrose 50% Inj) 0 ml IV STAT PRN; Protocol PRN Reason: Hypoglycemia Protocol Dextrose (Glutose 15) 0 gm PO ONCE PRN; Protocol PRN Reason: Hypoglycemia Protocol Ferrous Gluconate (Fergon) 324 mg PO TID [facility] Last Admin: 09/28/18 14:00 Dose: 324 mg Glucagon (Glucagen Diagnostic Kit) 0 mg IM STAT PRN; Protocol PRN Reason: Hypoglycemia Protocol Heparin Sodium (Porcine) (Heparin) 5,000 units SC Q12 [facility] Last Admin: 09/28/18 09:21 Dose: 5,000 units Dextrose (Dextrose 5% In Water 1000 Ml) 1,000 mls @ 0 mls/hr IV .Q0M PRN; Protocol PRN Reason: Hypoglycemia Protocol Sodium Chloride (Sodium Chloride 0.9%) 1,000 mls @ 110 mls/hr IV .Q9H6M [facility] Last Admin: 09/28/18 05:20 Dose: 110 mls/hr Ciprofloxacin (Cipro 400mg/200ml Dsw) 400 mg in 200 mls @ 133 mls/hr IVPB Q24H [facility]; Protocol Last Admin: 09/27/18 19:21 Dose: 133 mls/hr Metronidazole (Flagyl) 500 mg in 100 mls @ 100 mls/hr IVPB Q8H [facility]; Protocol Last Admin: 09/28/18 11:18 Dose: 100 mls/hr Insulin Human Regular (Novolin R) 0 unit SC ACHS [facility]; Protocol Last Admin: 09/28/18 12:32 Dose: 4 units Ondansetron HCl (Zofran Inj) 4 mg IVP Q8H PRN PRN Reason: Nausea/Vomiting Last Admin: 09/26/18 00:19 Dose: 4 mg Pantoprazole Sodium (Protonix Inj) 40 mg IVP DAILY [facility] Last Admin: 09/28/18 09:24 Dose: 40 mg Rosuvastatin Calcium (Crestor) 5 mg PO HS [facility] Last Admin: 09/27/18 21:55 Dose: 5 mg Sodium Bicarbonate (Sodium Bicarbonate Tab) 650 mg PO BID [facility] Last Admin: 09/28/18 09:21 Dose: 650 mg Vitamin B Complex/Vit C/Folic Acid (Nephro-Brayden) 1 tab PO 0800 [facility] Last Admin: 09/28/18 08:16 Dose: 1 tab - Labs Labs: 09/28/18 06:18 09/28/18 06:18 PT 10.7 SECONDS (9.7-12.2) 09/25/18 12:31 INR 1.0 09/25/18 12:31 APTT 32 SECONDS (21-34) 09/25/18 12:31
[2018-09-28] MEDS: Ciprofloxacin 400mg/200ml D5W 400 MG/200 ML BAG IVPB SCH (20:17)
--- NOTE | 2018-09-29 00:36 | CP.PCM.PN ---
<Chantel Brumfield - Last Filed: 09/29/18 00:33> Subjective - Date & Time of Evaluation Date of Evaluation: 09/29/18 Time of Evaluation: 00:33 - Subjective Subjective: Night Float Medicine Progress Note Patient seen and examined at bedside. Patient denies chest pain, SOB, nausea, vomiting. The only thing that is painful is her right foot which has been wrapped. Patient states her bedside commode helps since it takes less time to go to the bathroom with it and it is painful to walk. Objective - Vital Signs/Intake and Output Vital Signs (last 24 hours): Temp Pulse Resp BP Pulse Ox 98.2 F 85 20 128/74 97 09/28/18 16:00 09/28/18 16:00 09/28/18 16:00 09/28/18 16:00 09/28/18 16:00 Intake and Output: 09/28/18 09/29/18 18:59 06:59 Intake Total 1380 1305 Balance 1380 1305 - Medications Medications: Current Medications Acetaminophen (Tylenol 325mg Tab) 650 mg PO Q6 PRN PRN Reason: Pain, Mild (1-3) Last Admin: 09/28/18 03:24 Dose: 650 mg Calcium Acetate (Phoslo) 667 mg PO BIDCC [facility] Last Admin: 09/28/18 17:39 Dose: 667 mg Dextrose (Dextrose 50% Inj) 0 ml IV STAT PRN; Protocol PRN Reason: Hypoglycemia Protocol Dextrose (Glutose 15) 0 gm PO ONCE PRN; Protocol PRN Reason: Hypoglycemia Protocol Ferrous Gluconate (Fergon) 324 mg PO TID [facility] Last Admin: 09/28/18 17:39 Dose: 324 mg Glucagon (Glucagen Diagnostic Kit) 0 mg IM STAT PRN; Protocol PRN Reason: Hypoglycemia Protocol Heparin Sodium (Porcine) (Heparin) 5,000 units SC Q12 [facility] Last Admin: 09/28/18 21:50 Dose: 5,000 units Dextrose (Dextrose 5% In Water 1000 Ml) 1,000 mls @ 0 mls/hr IV .Q0M PRN; Protocol PRN Reason: Hypoglycemia Protocol Sodium Chloride (Sodium Chloride 0.9%) 1,000 mls @ 110 mls/hr IV .Q9H6M [facility] Last Admin: 09/28/18 23:49 Dose: 110 mls/hr Ciprofloxacin (Cipro 400mg/200ml Dsw) 400 mg in 200 mls @ 133 mls/hr IVPB Q24H [facility]; Protocol Last Admin: 09/28/18 20:17 Dose: 133 mls/hr Metronidazole (Flagyl) 500 mg in 100 mls @ 100 mls/hr IVPB Q8H [facility]; Protocol Last Admin: 09/28/18 18:29 Dose: 100 mls/hr Insulin Human Regular (Novolin R) 0 unit SC ACHS [facility]; Protocol Last Admin: 09/28/18 21:49 Dose: 2 units Ondansetron HCl (Zofran Inj) 4 mg IVP Q8H PRN PRN Reason: Nausea/Vomiting Last Admin: 09/26/18 00:19 Dose: 4 mg Pantoprazole Sodium (Protonix Inj) 40 mg IVP DAILY [facility] Last Admin: 09/28/18 09:24 Dose: 40 mg Rosuvastatin Calcium (Crestor) 5 mg PO HS [facility] Last Admin: 09/28/18 22:18 Dose: Not Given Sodium Bicarbonate (Sodium Bicarbonate Tab) 650 mg PO BID [facility] Last Admin: 09/28/18 17:39 Dose: 650 mg Vitamin B Complex/Vit C/Folic Acid (Nephro-Brayden) 1 tab PO 0800 [facility] Last Admin: 09/28/18 08:16 Dose: 1 tab - Labs Labs: 09/28/18 06:18 09/28/18 06:18 PT 10.7 SECONDS (9.7-12.2) 09/25/18 12:31 INR 1.0 09/25/18 12:31 APTT 32 SECONDS (21-34) 09/25/18 12:31 - Constitutional Appears: Well, Non-toxic - Head Exam Head Exam: ATRAUMATIC, NORMAL INSPECTION - Eye Exam Eye Exam: EOMI, Normal appearance - ENT Exam ENT Exam: Mucous Membranes Moist, Normal Exam - Neck Exam Neck Exam: Normal Inspection - Respiratory Exam Respiratory Exam: Clear to Ausculation Bilateral, NORMAL BREATHING PATTERN - Cardiovascular Exam Cardiovascular Exam: REGULAR RHYTHM - GI/Abdominal Exam GI & Abdominal Exam: Soft, Normal Bowel Sounds. absent: Distended, Firm, Guarding, Rigid, Tenderness - Extremities Exam Additional comments: right foot wrapped. no edema noted. tender to palpation right lateral aspect, inferior/sole. - Neurological Exam Neurological Exam: Alert, Awake, Oriented x3 - Psychiatric Exam Psychiatric exam: Normal Affect, Normal Mood - Skin Skin Exam: Dry, Intact, Normal Color, Warm Assessment and Plan - Assessment and Plan (Free Text) Assessment: 58 year old female with PMHx of DM2, HLD, and HTN presented to the ED with nausea, vomiting, and diarrhea for 1 day. She is admitted for CINTHIA with Cr of 7.0 on admission. Acute kidney injury: - Likely pre-renal and post-renal (mixed) etiology, dehydration 2/2 multiple episodes of nausea and vomiting. But FENa 14% suggests mixed etiology. Possible component of ATN. - BUN/Cr: 37/4.8 - downtrending - BUN/Cr PMD's office (09/21): 13/0.9 - Renal U/S (09/26): Mildly increased cortical echogenicity may indicate intrinsic medical renal disease. Both kidneys are otherwise unremarkable appearing. - Abd/pelvic CT (09/26): Diverticulosis. Wall thickening inflammatory stranding involving the distal left colon may reflect acute diverticulitis. Marked wall thickening of the duodenum. Correlate clinically for enteritis. Moderate hiatal hernia and marked distal esophageal wall thickening. If indicated, recommend further evaluation with endoscopy. - CXR (09/26): Mild patchy atelectasis or infiltrate medial right lower lobe. - EKG: NSR @ 96 - NS @ 110mls/hr - Nephrology consulted, Dr. Doyle - Urine protein: 56 - C3/C4: WNL - Lipase: 507 - Urine studies, CPK, intact PTH: f/u - DILCIA, ANCA, DS-DNA, immunofixation, [place]/Lambda light chains: f/u Right ankle pain: - MOLINA bandages and ice packs - R ankle Xray (09/26): No acute fracture or dislocation appreciated right ankle - Podiatry consulted, Dr. Umana - PT/OT Diabetes Mellitus 2: - Home meds hold Metformin and Glimerpide 2mg PO due to CINTHIA - Accuchecks ACHS - ISS - Hypoglycemia protocol Hyperlipidemia: - Crestor 5mg PO HS - Hold Prophylaxis - Regular diet - Heparin 5000 u SC Q12 - SCDs - GI ppx not indicated <Leandra Hartmann V - Last Filed: 09/29/18 17:13> Objective - Vital Signs/Intake and Output Vital Signs (last 24 hours): Temp Pulse Resp BP Pulse Ox 98.6 F 80 20 136/80 96 09/29/18 16:00 09/29/18 16:00 09/29/18 16:00 09/29/18 16:00 09/29/18 16:00 Intake and Output: 09/29/18 09/29/18 06:59 18:59 Intake Total 2415 1350 Balance 2415 1350 - Medications Medications: Current Medications Acetaminophen (Tylenol 325mg Tab) 650 mg PO Q6 PRN PRN Reason: Pain, Mild (1-3) Last Admin: 09/28/18 03:24 Dose: 650 mg Calcium Acetate (Phoslo) 667 mg PO BIDCC [facility] Last Admin: 09/29/18 08:54 Dose: 667 mg Dextrose (Dextrose 50% Inj) 0 ml IV STAT PRN; Protocol PRN Reason: Hypoglycemia Protocol Dextrose (Glutose 15) 0 gm PO ONCE PRN; Protocol PRN Reason: Hypoglycemia Protocol Ferrous Gluconate (Fergon) 324 mg PO TID [facility] Last Admin: 09/29/18 14:37 Dose: 324 mg Glucagon (Glucagen Diagnostic Kit) 0 mg IM STAT PRN; Protocol PRN Reason: Hypoglycemia Protocol Heparin Sodium (Porcine) (Heparin) 5,000 units SC Q12 [facility] Last Admin: 09/29/18 11:00 Dose: 5,000 units Dextrose (Dextrose 5% In Water 1000 Ml) 1,000 mls @ 0 mls/hr IV .Q0M PRN; Protocol PRN Reason: Hypoglycemia Protocol Sodium Chloride (Sodium Chloride 0.9%) 1,000 mls @ 110 mls/hr IV .Q9H6M [facility] Last Admin: 09/29/18 14:38 Dose: 110 mls/hr Ciprofloxacin (Cipro 400mg/200ml Dsw) 400 mg in 200 mls @ 133 mls/hr IVPB Q24H [facility]; Protocol Last Admin: 09/28/18 20:17 Dose: 133 mls/hr Metronidazole (Flagyl) 500 mg in 100 mls @ 100 mls/hr IVPB Q8H [facility]; Protocol Last Admin: 09/29/18 11:00 Dose: 100 mls/hr Insulin Human Regular (Novolin R) 0 unit SC ACHS [facility]; Protocol Last Admin: 09/29/18 12:30 Dose: 4 units Ondansetron HCl (Zofran Inj) 4 mg IVP Q8H PRN PRN Reason: Nausea/Vomiting Last Admin: 09/26/18 00:19 Dose: 4 mg Pantoprazole Sodium (Protonix Inj) 40 mg IVP DAILY [facility] Last Admin: 09/29/18 11:00 Dose: 40 mg Rosuvastatin Calcium (Crestor) 5 mg PO HS [facility] Last Admin: 09/28/18 22:18 Dose: Not Given Sodium Bicarbonate (Sodium Bicarbonate Tab) 650 mg PO BID [facility] Last Admin: 09/29/18 11:00 Dose: 650 mg Vitamin B Complex/Vit C/Folic Acid (Nephro-Brayden) 1 tab PO 0800 [facility] Last Admin: 09/29/18 08:54 Dose: 1 tab - Labs Labs: 09/29/18 06:18 09/29/18 06:19 PT 10.7 SECONDS (9.7-12.2) 09/25/18 12:31 INR 1.0 09/25/18 12:31 APTT 32 SECONDS (21-34) 09/25/18 12:31 Attending/Attestation - Attestation I have personally seen and examined this patient.: Yes I have fully participated in the care of the patient.: Yes I have reviewed all pertinent clinical information, including history, physical exam and plan: Yes Notes (Text): Patient seen, examined and case discussed with day-time resident. Patient on admission noted to have gastroenteritis symptoms of nausea/vomitting/diarrhea-->patient noted symptoms have resolved yesterday. Patient reports she is tolerating diet. Denies abdominal pain, denies nausea, denies vomitting. Patient is very eager to go home. Patient's creatinine improving initially 7.1 to 2.9. Prior creatinine as outp atient baseline is 0.9 from 09/21/18. Nephrology on board-->help appreciated Discussed with Dr. Ocasio, if creatinine continue to improve can be discharge; will need to f/u outpatient in the office Patient to continue gentle iv hydration. Patient is on renal dose IV abx for diverticulitis/gastroenteritis; likely 7-10 day treatment. Assessment/Plan 1) Acute Kidney Injury Assessment/Plan * NS 110 cc/hr (active since 09/26/18) * Sodium bicarbonate 650mg PO BID (active since 09/26/18) * Nephrovite 1 tab PO 0800 * Phoslo 667mg PO BIDCC * Renal U/S (09/26): Mildly increased cortical echogenicity may indicate intrinsic medical renal disease. Both kidneys are otherwise unremarkable appearing. * Abd/pelvic CT (09/26): Diverticulosis. Wall thickening inflammatory stranding involving the distal left colon may reflect acute diverticulitis. Marked wall thickening of the duodenum. Correlate clinically for enteritis. Moderate hiatal hernia and marked distal esophageal wall thickening. If indicated, recommend further evaluation with endoscopy. * CXR (09/26): Mild patchy atelectasis or infiltrate medial right lower lobe. * Off metformin/glipitin, molina, nsaid (motrin) * Improving 2) Right ankle pain Assessment/Plan * Evaluated able to invert, esteban the foot at the ankle no point tenderness * Compensating for recent knee pain noted in podiatry consult note * Podiatry (Dr. Umana) on board-->help appreciated * will not start NSAID in light of acute renal failure 3) Diabetes Mellitus 2 Assessment/Plan * Home meds hold Metformin and Glimerpide 2mg PO due to CINTHIA * Accuchecks ACHS * ISS * Hypoglycemia protocol * [id number]: 8.7 * Lipid Panel: T, chol: 120, LDL: 58, HDL: 36 4) Hyperlipidemia: Assessment/Plan * Crestor 5mg PO HS 5) Diverticulitis Assessment/Plan * Abd/pelvic CT (09/26): Diverticulosis. Wall thickening inflammatory stranding involving the distal left colon may reflect acute diverticulitis. Marked wall thickening of the duodenum. Correlate clinically for enteritis. Moderate hiatal hernia and marked distal esophageal wall thickening. If indicated, recommend further evaluation with endoscopy. * Ciprofloxacin 400mg IV QDaily (active since 09/26/18) * Flagyl 500mg IVPB Q8H (active since 09/26/18) * Upon discharge, patient instructed to follow up with GI and get a colonoscopy 8 weeks after resolution of diverticulitis 6) Anemia Assessment/Plan * iron: 51, TIBC: 307,% saturation: 17, Ferritin: 45.1 * Reticulocyte count: 0.9 * Ferrous Gluconate 324mg PO TID * Suspected secondary to acute renal failure * Patient will need outpatient colonoscopy in light of diverticulitis 7) Hyperkalemia-->resolved Assessment/Plan * Patient is off molina/arb since admission * Normalized today * Patient had received Calcium gluconate 09/26; 09/27 and Kayexlate 09/26;09/27 8) Hypertension Assessment/Plan * Off anti-hypertensives * Monitor vital signs 9) Lipid Disorder Assessment/Plan * Lipid Panel: T, chol: 120, LDL: 58, HDL: 36 * Crestor 10) Prophylaxis Assessment/Plan * Renal non dialysis diet, 2gm * Heparin 5000 u SC Q12 * SCDs * GI ppx not indicated Disposition: if creatinine continues to improve, possible discharge either Monday or Monday. Patient will need to complete ten day total treatment for enteritis; today is day 4. pending renal function to determine when to restart metformin/enalapril. Nephrology has recommended patient to follow-up outpatient with them upon discharge. Patient's PMD is Dr. Foster; will need f/u in regards to colonoscopy as outpatient in light of diverticulitis, first episode.
[2018-09-29] MEDS: metroNIDAZOLE IV 500 mg/100 ml 500 MG/100 ML BAG IVPB SCH ×3 (01:39→17:42)
[2018-09-29 06:30] LABS: BASO % 0.6 % (0.0-2.0); EOS # 0.4 K/uL (0.0-0.7); EOS % 8.4 % (0.0-4.0); HEMOGLOBIN 10.6 g/dL (11.0-16.0); LYMPH # 1.2 K/uL (1.0-4.3); LYMPH % 26.8 % (20.0-40.0); MEAN CELL VOLUME 88.2 fL (81.0-99.0); MEAN CORPUSCULAR HEMOGLOBIN 30.9 pg (27.0-31.0); MEAN PLATELET VOLUME 8.9 fL (7.2-11.7); MONO # 0.6 K/uL (0.0-0.8); MONO % 12.1 % (0.0-10.0); NEUT # 2.4 K/uL (1.8-7.0); NEUT % 52.1 % (50.0-75.0); NRBC % 0.1 % (0.0-2.0); RBC 3.43 Mil/uL (3.80-5.20); WHITE BLOOD COUNT 4.6 K/uL (4.8-10.8)
[2018-09-29 06:44] LABS: ALB/GLOB RATIO 1.2 (1.0-2.1); ALBUMIN 3.8 g/dL (3.5-5.0); CALCIUM 8.5 mg/dl (8.6-10.4)
[2018-09-29] MEDS: (Novolin R) Insulin Human Regular 100 units/ml vial SC SCH ×4 (08:30→21:56)
[2018-09-29] MEDS: Multivitamin Vitamin B Complex (Nephro-Vite) Tab PO SCH (08:54)
[2018-09-29] MEDS: Sodium Chloride 0.9% 1,000 ML IV SCH ×2 (09:30→14:38)
--- NOTE | 2018-09-29 09:41 | CP.PCM.CON ---
History of Present Illness - History of Present Illness History of Present Illness: Podiatry consult note for Dr. Umana 58 yo female patient with pmhx of DM2, HLD, and HTN seen and evaluated at bedside for right ankle pain. States that the pain started on Monday of this past week and has been the same since the onset. Describes the pain as soreness that travels up the outside of her leg when she walks. States that she does not feel any real pain when she is not walking but it does feel a little sore. She states that she fell 2 years ago and hurt her ankle but the pain has not persisted since the incident. She admits to falling recently on her right knee which has been hurting her as well. She denies any other pedal complaints as well as N/V/F/C/SOB/CP today. 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 All - NKDA Past Patient History - Past Medical History & Family History Past Medical History?: Yes - Past Social History Smoking Status: Never Smoked - CARDIAC Hx Hypertension: Yes - ENDOCRINE/METABOLIC Hx Endocrine Disorders: Yes Hx Diabetes Mellitus Type 2: Yes - MUSCULOSKELETAL/RHEUMATOLOGICAL Hx Falls: No - PSYCHIATRIC Hx Substance Use: No - SURGICAL HISTORY Hx Surgeries: Yes Hx Section: Yes (x3) - ANESTHESIA Hx Anesthesia: Yes Hx Anesthesia Reactions: No Hx Malignant Hyperthermia: No Has any member of the family had a problem w/ anesthesia?: No Meds Allergies/Adverse Reactions: Allergies Allergy/AdvReac Type Severity Reaction Status Date / Time No Known Allergies Allergy Verified 08/12/14 15:18 - Medications Medications: Current Medications Acetaminophen (Tylenol 325mg Tab) 650 mg PO Q6 PRN PRN Reason: Pain, Mild (1-3) Last Admin: 09/28/18 03:24 Dose: 650 mg Calcium Acetate (Phoslo) 667 mg PO BIDCC [facility] Last Admin: 09/29/18 08:54 Dose: 667 mg Dextrose (Dextrose 50% Inj) 0 ml IV STAT PRN; Protocol PRN Reason: Hypoglycemia Protocol Dextrose (Glutose 15) 0 gm PO ONCE PRN; Protocol PRN Reason: Hypoglycemia Protocol Ferrous Gluconate (Fergon) 324 mg PO TID [facility] Last Admin: 09/28/18 17:39 Dose: 324 mg Glucagon (Glucagen Diagnostic Kit) 0 mg IM STAT PRN; Protocol PRN Reason: Hypoglycemia Protocol Heparin Sodium (Porcine) (Heparin) 5,000 units SC Q12 [facility] Last Admin: 09/28/18 21:50 Dose: 5,000 units Dextrose (Dextrose 5% In Water 1000 Ml) 1,000 mls @ 0 mls/hr IV .Q0M PRN; Protocol PRN Reason: Hypoglycemia Protocol Sodium Chloride (Sodium Chloride 0.9%) 1,000 mls @ 110 mls/hr IV .Q9H6M [facility] Last Admin: 09/28/18 23:49 Dose: 110 mls/hr Ciprofloxacin (Cipro 400mg/200ml Dsw) 400 mg in 200 mls @ 133 mls/hr IVPB Q24H [facility]; Protocol Last Admin: 09/28/18 20:17 Dose: 133 mls/hr Metronidazole (Flagyl) 500 mg in 100 mls @ 100 mls/hr IVPB Q8H [facility]; Protocol Last Admin: 09/29/18 01:39 Dose: 100 mls/hr Insulin Human Regular (Novolin R) 0 unit SC ACHS [facility]; Protocol Last Admin: 09/29/18 08:30 Dose: 1 units Ondansetron HCl (Zofran Inj) 4 mg IVP Q8H PRN PRN Reason: Nausea/Vomiting Last Admin: 09/26/18 00:19 Dose: 4 mg Pantoprazole Sodium (Protonix Inj) 40 mg IVP DAILY [facility] Last Admin: 09/28/18 09:24 Dose: 40 mg Rosuvastatin Calcium (Crestor) 5 mg PO HS [facility] Last Admin: 09/28/18 22:18 Dose: Not Given Sodium Bicarbonate (Sodium Bicarbonate Tab) 650 mg PO BID [facility] Last Admin: 09/28/18 17:39 Dose: 650 mg Vitamin B Complex/Vit C/Folic Acid (Nephro-Brayden) 1 tab PO 0800 [facility] Last Admin: 09/29/18 08:54 Dose: 1 tab Physical Exam - Constitutional Appears: Well, Non-toxic, No Acute Distress - Head Exam Head Exam: ATRAUMATIC, NORMOCEPHALIC - Extremities Exam Additional comments: Vasc: DP and PT pulses palpable; cap refill <3 seconds to all digits; temp gradient warm to warm from proximal to distal; mild edema present laterally at the right ankle Derm: no lesions or wounds noted; mild xerosis present b/l; no erythema or ecchymosis present; skin temp and turgor are within normal limits Neuro: gross and protective sensation intact b/l Ortho: mild pain on palpation about the peroneal tendons and tracing along the lateral aspect of the leg to the fifth metatarsal base, not severe; mild pain on dorsiflexion of the ankle joint; MMT 5/5 and ROM not limited at the ankle or first MPJ; no other gross pathology noted - Neurological Exam Neurological exam: Alert, Oriented x3 - Psychiatric Exam Psychiatric exam: Normal Affect, Normal Mood Results - Vital Signs Recent Vital Signs: Last Vital Signs Temp 99.3 F 09/29/18 07:00 Pulse 84 09/29/18 07:00 Resp 20 09/29/18 07:00 BP 120/76 09/29/18 07:00 Pulse Ox 96 09/29/18 07:00 - Labs Result Diagrams: 09/29/18 06:18 09/29/18 06:19 Labs: Laboratory Results - last 24 hr 09/26/18 09/27/18 09/27/18 11:40 07:32 16:52 WBC RBC Hgb Hct MCV MCH MCHC RDW Plt Count MPV Neut % (Auto) Lymph % (Auto) [place] % (Auto) Eos % (Auto) Baso % (Auto) Neut # (Auto) Lymph # (Auto) [place] # (Auto) Eos # (Auto) Baso # (Auto) Retic Count Sodium Potassium Chloride Carbon Dioxide Anion Gap BUN Creatinine Est GFR ( Amer) Est GFR (Non-Af Amer) POC Glucose (mg/dL) 122 H Random Glucose Calcium Phosphorus Magnesium Total Bilirubin AST ALT Alkaline Phosphatase Total Protein Total Protein (PEP) 6.7 Albumin Albumin (PEP) 3.6 L Globulin Albumin/Globulin Ratio Wlkxe-7-Wooyolpkz 0.4 H Ntsgw-8-Rozxuxean 0.9 Oeze-7-Tglhtwxj 0.4 Wiqx-8-Rvkqioqx 0.4 Gamma Globulins 1.0 Abnorm Protein Band 1 TEST NOT PERFORMED Abnorm Protein Band 2 TEST NOT PERFORMED Abnorm Protein Band 3 TEST NOT PERFORMED Triglycerides Cholesterol LDL Cholesterol Direct HDL Cholesterol [place] & SPEP Interp See note DILCIA Nuclear Membr Pat Negative 09/27/18 09/28/18 09/28/18 21:14 07:20 11:28 WBC RBC Hgb Hct MCV MCH MCHC RDW Plt Count MPV Neut % (Auto) Lymph % (Auto) [place] % (Auto) Eos % (Auto) Baso % (Auto) Neut # (Auto) Lymph # (Auto) [place] # (Auto) Eos # (Auto) Baso # (Auto) Retic Count Sodium Potassium Chloride Carbon Dioxide Anion Gap BUN Creatinine Est GFR ( Amer) Est GFR (Non-Af Amer) POC Glucose (mg/dL) 373 H 189 H 310 H Random Glucose Calcium Phosphorus Magnesium Total Bilirubin AST ALT Alkaline Phosphatase Total Protein Total Protein (PEP) Albumin Albumin (PEP) Globulin Albumin/Globulin Ratio Qtfer-6-Onftrehei Krwja-5-Mjcjptcdy Dvjv-9-Acnlpvvq Djct-0-Tzaupscp Gamma Globulins Abnorm Protein Band 1 Abnorm Protein Band 2 Abnorm Protein Band 3 Triglycerides Cholesterol LDL Cholesterol Direct HDL Cholesterol [place] & SPEP Interp DILCIA Nuclear Membr Pat 09/28/18 09/28/18 09/29/18 16:07 21:10 02:13 WBC RBC Hgb Hct MCV MCH MCHC RDW Plt Count MPV Neut % (Auto) Lymph % (Auto) [place] % (Auto) Eos % (Auto) Baso % (Auto) Neut # (Auto) Lymph # (Auto) [place] # (Auto) Eos # (Auto) Baso # (Auto) Retic Count Sodium Potassium Chloride Carbon Dioxide Anion Gap BUN Creatinine Est GFR ( Amer) Est GFR (Non-Af Amer) POC Glucose (mg/dL) 218 H 375 H 213 H Random Glucose Calcium Phosphorus Magnesium Total Bilirubin AST ALT Alkaline Phosphatase Total Protein Total Protein (PEP) Albumin Albumin (PEP) Globulin Albumin/Globulin Ratio Uxkql-2-Sxhjzkqsf Infmr-7-Xiauswxmx Fxfo-1-Pnqbuxjv Ecnb-1-Ochcwljm Gamma Globulins Abnorm Protein Band 1 Abnorm Protein Band 2 Abnorm Protein Band 3 Triglycerides Cholesterol LDL Cholesterol Direct HDL Cholesterol [place] & SPEP Interp DILCIA Nuclear Membr Pat 09/29/18 09/29/18 09/29/18 06:18 06:19 07:02 WBC 4.6 L RBC 3.43 L Hgb 10.6 L Hct 30.3 L MCV 88.2 MCH 30.9 MCHC 35.0 RDW 13.0 Plt Count 218 MPV 8.9 Neut % (Auto) 52.1 Lymph % (Auto) 26.8 [place] % (Auto) 12.1 H Eos % (Auto) 8.4 H Baso % (Auto) 0.6 Neut # (Auto) 2.4 Lymph # (Auto) 1.2 [place] # (Auto) 0.6 Eos # (Auto) 0.4 Baso # (Auto) 0.0 Retic Count 0.9 Sodium 137 Potassium 3.8 Chloride 105 Carbon Dioxide 22 Anion Gap 15 BUN 28 H Creatinine 2.9 H Est GFR ( Amer) 20 Est GFR (Non-Af Amer) 17 POC Glucose (mg/dL) 164 H Random Glucose 186 H Calcium 8.5 L Phosphorus 3.8 Magnesium 2.2 Total Bilirubin 0.4 AST 27 ALT 30 Alkaline Phosphatase 65 Total Protein 7.0 Total Protein (PEP) Albumin 3.8 Albumin (PEP) Globulin 3.2 Albumin/Globulin Ratio 1.2 Qdypy-2-Gqhrmfflo Xixhw-7-Jjikzhmjq Vbqd-0-Doambhhf Vkbg-3-Yrnipawh Gamma Globulins Abnorm Protein Band 1 Abnorm Protein Band 2 Abnorm Protein Band 3 Triglycerides 78 Cholesterol 120 LDL Cholesterol Direct 58 HDL Cholesterol 39 [place] & SPEP Interp DILCIA Nuclear Membr Pat Assessment & Plan - Assessment and Plan (Free Text) Assessment: 58 yo female with pmhx of DM, HLD, HTN evaluated for right ankle pain Plan: Patient seen and evaluated Discussed in detail with Dr. Umana Afebrile, absent leukocytosis Discussed knee injury and associated compensation at the right ankle joint PT eval and treat order - f/u recs Patient placed in compression dressing and instructed to elevate right leg as much as possible to help alleviate swelling and pain Can ICE ankle as well Right ankle x-ray - negative for fracture or dislocation Cannot take antiinflammatories due to renal function Will continue to monitor patient while in house Thank you for the consult - Date & Time Date: 09/29/18 Time: 09:49
--- NOTE | 2018-09-29 13:35 | CP.PCM.PN ---
Subjective - Date & Time of Evaluation Date of Evaluation: 09/29/18 Time of Evaluation: 13:33 - Subjective Subjective: Nephrology Consultation Note: Assessment: Stable Acute Kidney Injury (N17.9) likely due to fluid loss, ATN: better hyperkalemia, acidosis DM, HTN, Anemia acute gastroenteritis Plan No acute need for renal replacement therapy at this time. Cr significantly improved continue to monitor Hypertension control with meds as ordered. Maintain hemodynamics stable. Avoid hypotension. Patient not on ACEI/ARB due to recent CINTHIA Monitor Input/Output, daily weights and renal function with basic metabolic panel can d/c na hco3 if cr continues to significantly improve k stable has about 1.5 grams of protein serologic studies sent off - would like her to follow up in our office once discharged to make sure all serologies are negative S: seen and examined denies n/v Physical Examination: General Appearance: Comfortable, in no acute respiratory distress, co-operative . Vitals reviewed and noted as below Head; Atraumatic, normocephalic ENT: no ulcers no thrush. Tongue is midline. Oropharynx: no rash or ulcers. EYES: Pupils are equal, round and reactive to light accommodation. Eye muscles and extraocular movement intact. Sclera is anicteric. Neck; supple no lymphadenopathy, no thyromegaly or bruit Lungs: Normal respiratory rate/effort. Breath sounds bilateral equal and clear Heart: Normal rate. s1s2 normal. No rub or gallop. Extremities: no edema. No varicose veins Neurological: Patient is alert, awake and oriented to person, place and time. No focal deficit. Strength bilateral appropriate and equal Skin: Warm and dry. Normal turgor. No rash. Palpitation: Normal elasticity for age Abdomen: Abdomen is soft. Bowel sounds +. There is no abdominal tenderness, no guarding/rigidity no organomegaly Psych: normal insight and normal affect/mood MSK: no joint tenderness or swelling. Digits and nails normal, no deformity : kidney or bladder not palpable Labs/imaging reviewed. Past medical history, past surgical history, family history, social history, allergy reviewed and noted as below Family hx: no hx of CKD. Rest non-contributory Objective - Vital Signs/Intake and Output Vital Signs (last 24 hours): Temp Pulse Resp BP Pulse Ox 99.3 F 84 20 120/76 96 09/29/18 07:00 09/29/18 07:00 09/29/18 07:00 09/29/18 07:00 09/29/18 07:00 Intake and Output: 09/29/18 09/29/18 06:59 18:59 Intake Total 2415 Balance 2415 - Medications Medications: Current Medications Acetaminophen (Tylenol 325mg Tab) 650 mg PO Q6 PRN PRN Reason: Pain, Mild (1-3) Last Admin: 09/28/18 03:24 Dose: 650 mg Calcium Acetate (Phoslo) 667 mg PO BIDCC [facility] Last Admin: 09/29/18 08:54 Dose: 667 mg Dextrose (Dextrose 50% Inj) 0 ml IV STAT PRN; Protocol PRN Reason: Hypoglycemia Protocol Dextrose (Glutose 15) 0 gm PO ONCE PRN; Protocol PRN Reason: Hypoglycemia Protocol Ferrous Gluconate (Fergon) 324 mg PO TID [facility] Last Admin: 09/29/18 11:00 Dose: 324 mg Glucagon (Glucagen Diagnostic Kit) 0 mg IM STAT PRN; Protocol PRN Reason: Hypoglycemia Protocol Heparin Sodium (Porcine) (Heparin) 5,000 units SC Q12 [facility] Last Admin: 09/29/18 11:00 Dose: 5,000 units Dextrose (Dextrose 5% In Water 1000 Ml) 1,000 mls @ 0 mls/hr IV .Q0M PRN; Protocol PRN Reason: Hypoglycemia Protocol Sodium Chloride (Sodium Chloride 0.9%) 1,000 mls @ 110 mls/hr IV .Q9H6M [facility] Last Admin: 09/29/18 09:30 Dose: Not Given Ciprofloxacin (Cipro 400mg/200ml Dsw) 400 mg in 200 mls @ 133 mls/hr IVPB Q24H [facility]; Protocol Last Admin: 09/28/18 20:17 Dose: 133 mls/hr Metronidazole (Flagyl) 500 mg in 100 mls @ 100 mls/hr IVPB Q8H RAAD; Protocol Last Admin: 09/29/18 11:00 Dose: 100 mls/hr Insulin Human Regular (Novolin R) 0 unit SC ACHS [facility]; Protocol Last Admin: 09/29/18 12:30 Dose: 4 units Ondansetron HCl (Zofran Inj) 4 mg IVP Q8H PRN PRN Reason: Nausea/Vomiting Last Admin: 09/26/18 00:19 Dose: 4 mg Pantoprazole Sodium (Protonix Inj) 40 mg IVP DAILY [facility] Last Admin: 09/29/18 11:00 Dose: 40 mg Rosuvastatin Calcium (Crestor) 5 mg PO HS [facility] Last Admin: 09/28/18 22:18 Dose: Not Given Sodium Bicarbonate (Sodium Bicarbonate Tab) 650 mg PO BID [facility] Last Admin: 09/29/18 11:00 Dose: 650 mg Vitamin B Complex/Vit C/Folic Acid (Nephro-Brayden) 1 tab PO 0800 [facility] Last Admin: 09/29/18 08:54 Dose: 1 tab - Labs Labs: 09/29/18 06:18 09/29/18 06:19 PT 10.7 SECONDS (9.7-12.2) 09/25/18 12:31 INR 1.0 09/25/18 12:31 APTT 32 SECONDS (21-34) 09/25/18 12:31
[2018-09-29] MEDS: Ciprofloxacin 400mg/200ml D5W 400 MG/200 ML BAG IVPB SCH (20:11)
[2018-09-30] MEDS: metroNIDAZOLE IV 500 mg/100 ml 500 MG/100 ML BAG IVPB SCH ×2 (01:31→10:26)
[2018-09-30] MEDS: Sodium Chloride 0.9% 1,000 ML IV SCH (04:25)
[2018-09-30 07:57] LABS: BASO % 0.7 % (0.0-2.0); EOS # 0.4 K/uL (0.0-0.7); EOS % 9.2 % (0.0-4.0); HEMOGLOBIN 10.7 g/dL (11.0-16.0); LYMPH # 1.2 K/uL (1.0-4.3); LYMPH % 31.5 % (20.0-40.0); MEAN CELL VOLUME 89.3 fL (81.0-99.0); MEAN CORPUSCULAR HEMOGLOBIN 31.1 pg (27.0-31.0); MEAN CORPUSCULAR HGB CONC 34.9 g/dL (33.0-37.0); MEAN PLATELET VOLUME 8.8 fL (7.2-11.7); MONO # 0.5 K/uL (0.0-0.8); MONO % 12.6 % (0.0-10.0); NEUT # 1.8 K/uL (1.8-7.0); NRBC % 0.1 % (0.0-2.0); RBC 3.44 Mil/uL (3.80-5.20); RED CELL DISTRIBUTION WIDTH 12.8 % (11.5-14.5); WHITE BLOOD COUNT 3.9 K/uL (4.8-10.8)
[2018-09-30 08:22] VITALS: BP 132/83; PULSE 90; TEMP 98.5; O2SAT 96
[2018-09-30 08:28] LABS: ALB/GLOB RATIO 1.1 (1.0-2.1); ALBUMIN 3.7 g/dL (3.5-5.0); CALCIUM 8.8 mg/dl (8.6-10.4)
[2018-09-30] MEDS: (Novolin R) Insulin Human Regular 100 units/ml vial SC SCH ×2 (08:30→12:30)
[2018-09-30] MEDS: Multivitamin Vitamin B Complex (Nephro-Vite) Tab PO SCH (08:30)
--- NOTE | 2018-09-30 12:14 | CP.PCM.DIS ---
Provider - Provider Date of Admission: 09/25/18 23:36 Attending physician: Leandra Hartmann DO Consults: Dr. Ocasio; nephrology Dr. Umana; Podiatry Time Spent in preparation of Discharge (in minutes): 65 Hospital Course - Lab Results Lab Results: Micro Results 09/26/18 01:27 Blood-Venous Blood Culture - Preliminary NO GROWTH AFTER 4 DAYS 09/26/18 00:52 Blood-Venous Blood Culture - Preliminary NO GROWTH AFTER 4 DAYS Most Recent Lab Values WBC 3.9 K/uL (4.8-10.8) L 09/30/18 07:46 RBC 3.44 Mil/uL (3.80-5.20) L 09/30/18 07:46 Hgb 10.7 g/dL (11.0-16.0) L 09/30/18 07:46 Hct 30.7 % (34.0-47.0) L 09/30/18 07:46 MCV 89.3 fL (81.0-99.0) 09/30/18 07:46 MCH 31.1 pg (27.0-31.0) H 09/30/18 07:46 MCHC 34.9 g/dL (33.0-37.0) 09/30/18 07:46 RDW 12.8 % (11.5-14.5) 09/30/18 07:46 Plt Count 220 K/uL (130-400) 09/30/18 07:46 MPV 8.8 fL (7.2-11.7) 09/30/18 07:46 Neut % (Auto) 46.0 % (50.0-75.0) L 09/30/18 07:46 Lymph % (Auto) 31.5 % (20.0-40.0) 09/30/18 07:46 [place] % (Auto) 12.6 % (0.0-10.0) H 09/30/18 07:46 Eos % (Auto) 9.2 % (0.0-4.0) H 09/30/18 07:46 Baso % (Auto) 0.7 % (0.0-2.0) 09/30/18 07:46 Neut # (Auto) 1.8 K/uL (1.8-7.0) 09/30/18 07:46 Lymph # (Auto) 1.2 K/uL (1.0-4.3) 09/30/18 07:46 [place] # (Auto) 0.5 K/uL (0.0-0.8) 09/30/18 07:46 Eos # (Auto) 0.4 K/uL (0.0-0.7) 09/30/18 07:46 Baso # (Auto) 0.0 K/uL (0.0-0.2) 09/30/18 07:46 Retic Count 0.9 % (0.5-1.5) 09/29/18 06:18 PT 10.7 SECONDS (9.7-12.2) 09/25/18 12:31 INR 1.0 09/25/18 12:31 APTT 32 SECONDS (21-34) 09/25/18 12:31 Sodium 140 mmol/L (132-148) 09/30/18 07:46 Potassium 3.6 mmol/L (3.6-5.2) 09/30/18 07:46 Chloride 106 mmol/L (98-107) 09/30/18 07:46 Carbon Dioxide 23 mmol/L (22-30) 09/30/18 07:46 Anion Gap 14 (10-20) 09/30/18 07:46 BUN 19 mg/dL (7-17) H 09/30/18 07:46 Creatinine 1.9 mg/dL (0.7-1.2) H 09/30/18 07:46 Est GFR ( Amer) 33 09/30/18 07:46 Est GFR (Non-Af Amer) 27 09/30/18 07:46 POC Glucose (mg/dL) 174 mg/dL (65-110) H 09/30/18 07:36 Random Glucose 194 mg/dL (65-105) H 09/30/18 07:46 Hemoglobin A1c 8.7 % (4.2-6.5) H 09/29/18 06:18 Uric Acid 8.5 mg/dL (2.2-7.5) H 09/27/18 16:16 Calcium 8.8 mg/dl (8.6-10.4) 09/30/18 07:46 Phosphorus 3.3 mg/dL (2.5-4.5) 09/30/18 07:46 Magnesium 1.4 mg/dL (1.6-2.3) L 09/30/18 07:46 Iron 51 ug/dL (37-170) 09/26/18 11:42 TIBC 307 ug/dL (250-450) 09/26/18 11:42 % Saturation 17 (20-55) L 09/26/18 11:42 Ferritin 45.1 ng/mL 09/26/18 11:40 Total Bilirubin 0.5 mg/dL (0.2-1.3) 09/30/18 07:46 AST 34 U/L (14-36) 09/30/18 07:46 ALT 28 U/L (9-52) 09/30/18 07:46 Alkaline Phosphatase 53 U/L (38-126) 09/30/18 07:46 NT-Pro-B Natriuret Pep 612 pg/mL (0-900) 09/25/18 21:16 Total Protein 7.0 g/dL (6.3-8.3) 09/30/18 07:46 Total Protein (PEP) 6.7 g/dL (6.1-8.1) 09/27/18 07:32 Albumin 3.7 g/dL (3.5-5.0) 09/30/18 07:46 Albumin (PEP) 3.6 g/dL (3.8-4.8) L 09/27/18 07:32 Globulin 3.3 gm/dL (2.2-3.9) 09/30/18 07:46 Albumin/Globulin Ratio 1.1 (1.0-2.1) 09/30/18 07:46 Plvli-0-Afgvsfsld 0.4 g/dL (0.2-0.3) H 09/27/18 07:32 Dnwwx-1-Kxuqsqpqi 0.9 g/dL (0.5-0.9) 09/27/18 07:32 Frec-7-Qlnjozsc 0.4 g/dL (0.4-0.6) 09/27/18 07:32 Ulaq-3-Hagndins 0.4 g/dL (0.2-0.5) 09/27/18 07:32 Gamma Globulins 1.0 g/dL (0.8-1.7) 09/27/18 07:32 Abnorm Protein Band 1 TEST NOT PERFORMED 09/27/18 07:32 Abnorm Protein Band 2 TEST NOT PERFORMED 09/27/18 07:32 Abnorm Protein Band 3 TEST NOT PERFORMED 09/27/18 07:32 Triglycerides 78 mg/dL (0-149) 09/29/18 06:19 Cholesterol 120 mg/dL (0-199) 09/29/18 06:19 LDL Cholesterol Direct 58 mg/dL (0-129) 09/29/18 06:19 HDL Cholesterol 39 mg/dL (30-70) 09/29/18 06:19 Lipase 517 U/L (23-300) H 09/25/18 20:57 Vitamin B12 383 pg/mL (239-931) 09/26/18 11:40 25-OH Vitamin D Total 31.3 NG/ML (30.0-100.0) 09/27/18 07:32 Folate > 20.0 ng/mL 09/26/18 11:40 PTH Intact Whole Molec 134 pg/mL (14-64) H 09/26/18 11:40 Urine Color Yellow (YELLOW) 09/25/18 20:23 Urine Clarity Hazy (Clear) 09/25/18 20:23 Urine pH 5.0 (5.0-8.0) 09/25/18 20:23 Ur Specific Bow 1.011 (1.003-1.030) 09/25/18 20:23 Urine Protein 1+ mg/dL (NEGATIVE) H 09/25/18 20:23 Urine Glucose (UA) Normal mg/dL (Normal) 09/25/18 20:23 Urine Ketones Negative mg/dL (NEGATIVE) 09/25/18 20:23 Urine Blood 1+ (NEGATIVE) H 09/25/18 20:23 Urine Nitrate Negative (NEGATIVE) 09/25/18 20:23 Urine Bilirubin Negative (NEGATIVE) 09/25/18 20:23 Urine Urobilinogen Normal mg/dL (0.2-1.0) 09/25/18 20:23 Ur Leukocyte Esterase Neg Wes/uL (Negative) 09/25/18 20:23 Urine WBC (Auto) 2 /hpf (0-5) 09/25/18 20:23 Urine RBC (Auto) 1 /hpf (0-3) 09/25/18 20:23 Ur Squamous Epith Cells 1 /hpf (0-5) 09/25/18 20:23 Amorphous Sediment Rare /ul (<OCC) H 09/25/18 20:23 Urine Bacteria Occ (<OCC) H 09/25/18 20:23 Ur Random Creatinine 25 mg/dL (20-275) 09/26/18 11:40 U Random Total Protein 1640 mg/g creat (21-161) H 09/26/18 12:45 Ur Random Sodium 117 mmol/L 09/26/18 11:24 Ur Random Potassium 19.0 mmol/L 09/26/18 11:24 Urine Total Volume 4.8 mg/dL 09/26/18 11:40 Microalb/Creat Ratio 192 (<30) H 09/26/18 11:40 EUSEBIA & SPEP Interp See note 09/27/18 07:32 DILCIA Nuclear Membr Pat Negative (Negative) 09/26/18 11:40 Proteinase 3 (PR3) <1.0 AI (<1.0) 09/26/18 11:40 Myeloperoxidase Ab <1.0 AI (<1.0) 09/26/18 11:40 Double Strand DNA Ab <1 IU/mL 09/26/18 11:40 Complement C3 129.0 mg/dL (88.0-165.0) 09/26/18 11:40 Complement C4 41.9 mg/dL (14.0-44.0) 09/26/18 11:40 Hep Bs Antigen Negative (NEGATIVE) 09/26/18 11:40 Hep Bs Antibody Positive (NEGATIVE) 09/26/18 11:56 Hep B Core IgM Ab Negative (NEGATIVE) 09/26/18 11:40 Hepatitis C Antibody Negative (NEGATIVE) 09/26/18 11:40 HIV 1&2 Antibody Screen Negative (NEGATIVE) 09/26/18 11:40 - Hospital Course Hospital Course: 58 year old female with PMHx of DM2, HLD, and HTN presented to the ED with nausea, vomiting, and diarrhea for 1 day. She is admitted for CINTHIA with Cr of 7.0 on admission which has downtrended to 1.9 on day of discharge Acute kidney injury: - Likely pre-renal and post-renal (mixed) etiology, dehydration 2/2 multiple episodes of nausea and vomiting. But FENa 14% suggests mixed etiology. Possible component of ATN. - BUN/Cr: 37/4.8 - downtrending - BUN/Cr PMD's office (09/21): 13/0.9 - Renal U/S (09/26): Mildly increased cortical echogenicity may indicate intrinsic medical renal disease. Both kidneys are otherwise unremarkable appearing. - Abd/pelvic CT (09/26): Diverticulosis. Wall thickening inflammatory stranding involving the distal left colon may reflect acute diverticulitis. Marked wall thickening of the duodenum. Correlate clinically for enteritis. Moderate hiatal hernia and marked distal esophageal wall thickening. If indicated, recommend further evaluation with endoscopy. - CXR (09/26): Mild patchy atelectasis or infiltrate medial right lower lobe. - EKG: NSR @ 96 - NS @ 110mls/hr - Nephrology consulted, Dr. Doyle - Urine protein: 56 - C3/C4: WNL - Lipase: 507 - Urine studies, CPK, intact PTH: f/u - DILCIA, ANCA, DS-DNA, immunofixation, [place]/Lambda light chains: f/u the patient will need to f/u the workup for autoimmune causes with nephrology as out patient patient to see JAZZ Foster within the week for repeat CMP Right ankle pain: - MOLINA bandages and ice packs - R ankle Xray (09/26): No acute fracture or dislocation appreciated right ankle - Podiatry consulted, Dr. Umana - PT/OT rest, ice, compress no NSAIDS for the time being tylenol only Diabetes Mellitus 2: - Home meds hold Metformin and Glimerpide 2mg PO due to CINTHIA - Accuchecks ACHS - ISS - Hypoglycemia protocol hold metformin until repeat CMP c/w glimperide Hyperlipidemia: - Crestor 5mg PO HS - Hold holding simvastatin as well until repeat CMP hold metformin until CMP is done f/u with Dr. Foster within the week f/u with nephrology within the week as well continue taking glimiperide take plenty of PO fluids take ciprofloxacin 500mg BID for 6 more days continue with amlodipine daily The patient is stable for d/c as per Dr. natalie Pagan PGY3 Discharge Exam - Head Exam Head Exam: ATRAUMATIC, NORMOCEPHALIC - Eye Exam Eye Exam: EOMI, Normal appearance, PERRL Pupil Exam: PERRL - ENT Exam ENT Exam: Mucous Membranes Moist - Neck Exam Neck exam: Full Rom - Respiratory Exam Respiratory Exam: Clear to PA & Lateral, UNREMARKABLE. absent: Rales, Rhonchi, Wheezes - Cardiovascular Exam Cardiovascular Exam: REGULAR RHYTHM, +S1, +S2 - GI/Abdominal Exam GI & Abdominal Exam: Normal Bowel Sounds, Soft. absent: Tenderness - Extremities Exam Extremities exam: full ROM - Back Exam Back exam: absent: CVA tenderness (L), CVA tenderness (R) - Neurological Exam Neurological exam: Alert, CN II-XII Intact, Normal Gait, Oriented x3, Reflexes Normal - Psychiatric Exam Psychiatric exam: Normal Affect - Skin Skin Exam: Warm Discharge Plan - Follow Up Plan Condition: GOOD Disposition: HOME/ ROUTINE Instructions: Acute Kidney Failure
[2018-10-01 03:09] LABS: ANCA SCREEN NEGATIVE (NEGATIVE)
--- NOTE | 2018-10-01 12:26 | CARD ---
APPROVED REPORT Date of service: 09/26/2018 EKG Measurement Heart [id number] <Conclusion> Normal sinus rhythm Normal ECG
== END 2018-09-30 14:52 | disposition home or self-care (01) | DRG 469 ==
LOC: C.ER 19:45 → C.3T 23:36
PROVIDERS: ADMIT Hospitalist; ATTEND Hospitalist
DX: N17.0 Acute kidney failure with tubular necrosis (principal); E87.2 Acidosis; K57.92 Diverticulitis of intestine, part unspecified, without perforation or abscess without bleeding; I10 Essential (primary) hypertension; D64.9 Anemia, unspecified; E11.9 Type 2 diabetes mellitus without complications; K52.9 Noninfective gastroenteritis and colitis, unspecified; J98.11 Atelectasis; K22.9 Disease of esophagus, unspecified; K44.9 Diaphragmatic hernia without obstruction or gangrene; E87.5 Hyperkalemia; E86.0 Dehydration; E78.5 Hyperlipidemia, unspecified

== ENCOUNTER 2019-03-26 15:57 | Outpatient (CLI) | payer OTHER | END 2019-03-26 15:58 | disposition home or self-care (01) | LOC: C.MAMMO 15:57 ==